=== PATIENT | female | born 1985 | race Caucasian/White ===

== ENCOUNTER 2019-01-10 11:57 | Emergency (ER) | payer OTHER, SELFPAY ==
--- OUTSIDE RECORDS SUMMARY | 2019-01-10 11:58 | XMS REPORT ---
:1985 [facility] Address [address] [place] [address] Care Team Providers Name Role Phone Unavailable Unavailable Unavailable Problems This patient has no known problems. Allergies, Adverse Reactions, Alerts This patient has no known allergies or adverse reactions. Medications This patient has no known medications.
--- NOTE | 2019-01-10 13:14 | EDPHYS ---
Physician Documentation [facility] Name: Emerald Neri Age: 33 yrs Sex: Female : 1985 Arrival Date: 01/10/2019 Time: 12:02 Bed 10 Private MD: Alec Lowe E ED Physician Feliberto Hsu HPI: 01/10 13:11 This 33 yrs old Female presents to ER via Ambulatory with complaints of rn Cough, Sore Throat. 13:11 The patient or guardian reports cough, flu symptoms. Onset: The symptoms/episode rn began/occurred 4 day(s) ago. Severity of symptoms: At their worst the symptoms were mild, in the emergency department the symptoms are unchanged. Modifying factors: The symptoms are alleviated by nothing, the symptoms are aggravated by smoke. The patient has experienced similar episodes in the past. The patient has not recently seen a physician. 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 - Social history:: Smoking status: Patient uses tobacco products, smokes one-half pack cigarettes per day. - Ebola Screening: : No symptoms or risks identified at this time. - Family history:: not pertinent. - Hospitalizations: : No recent hospitalization is reported. ROS: 13:11 Constitutional: Negative for fever, chills, and weight loss, Eyes: Negative for injury, rn pain, redness, and discharge, Neck: Negative for injury, pain, and swelling, Cardiovascular: Negative for chest pain, palpitations, and edema, Respiratory: Negative for wheezing, and pleuritic chest pain Abdomen/GI: Negative for abdominal pain, nausea, vomiting, diarrhea, and constipation, MS/Extremity: Negative for injury and deformity, Skin: Negative for injury, rash, and discoloration, Neuro: Negative for headache, numbness, tingling, and seizure. Exam: 13:11 Constitutional: This is a well developed, well nourished patient who is awake, alert, rn and in no acute distress. Head/Face: Normocephalic, atraumatic. Eyes: Pupils equal round and reactive to light, extra-ocular motions intact. Lids and lashes normal. Conjunctiva and sclera are non-icteric and not injected. Cornea within normal limits. Periorbital areas with no swelling, redness, or edema. ENT: mild pharyngeal erythema, no stridor Neck: Trachea midline, no thyromegaly or masses palpated, and no cervical lymphadenopathy. Supple, full range of motion without nuchal rigidity, or vertebral point tenderness. No Meningismus. Cardiovascular: Regular rate and rhythm. No pulse deficits. Respiratory: Lungs have equal breath sounds bilaterally, clear to auscultation and percussion. No rales, rhonchi or wheezes noted. No increased work of breathing, no retractions or nasal flaring. Skin: Warm, dry with normal turgor. Normal color with no rashes, no lesions, and no evidence of cellulitis. MS/ Extremity: Pulses equal, no cyanosis. Neurovascular intact. Full, normal range of motion. Equal circumference. Neuro: Awake and alert, GCS 15, oriented to person, place, time, and situation. Cranial nerves II-XII grossly intact. Motor strength 5/5 in all extremities. Sensory grossly intact. Vital Signs: 12:10 BP 148 / 100; Pulse 98; Resp 18; Temp 97.8; Pulse Ox 100% on R/A; Pain 7/10; hb MDM: 13:02 Patient medically screened. rn 13:11 Differential Diagnosis: Bronchitis Influenza Upper Respiratory Infection Viral Syndrome rn Pneumonia. Data reviewed: vital signs, nurses notes, lab test result(s). Counseling: I had a detailed discussion with the patient and/or guardian regarding: the historical points, exam findings, and any diagnostic results supporting the discharge/admit diagnosis, lab results, the need for outpatient follow up, to return to the emergency department if symptoms worsen or persist or if there are any questions or concerns that arise at home, smoking cessation. Refusal of service: The patient/guardian displays adequate decision making capability and despite a detailed discussion of alternatives, benefits, risks, and consequences refuses: all X-rays. ED course: Pt refuses xrays, just wanted to see if she had the flu, wants to go home, states doesn't want to wait an hour for an xray. . 02/12 12:12 Order name: Strep; Complete Time: 13:02 01/10 12:12 Order name: Flu; Complete Time: 13:02 01/10 12:44 Order name: Throat Culture EDMS Administered Medications: No medications were administered Disposition: 01/10/19 13:13 Discharged to Home. Impression: Cough. - Condition is Stable. - Discharge Instructions: Cough, Adult. - Medication Reconciliation Form, Thank You Letter, Antibiotic Education, Prescription Opioid Use form. - Follow up: Alec Lowe MD; When: As needed; Reason: Recheck today's complaints, Re-evaluation by your physician. - Problem is new. - Symptoms have improved. 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 Impression: Cough. Condition is Stable. iw Forms are Medication Reconciliation Form, Thank You Letter, Antibiotic Education, Prescription Opioid Use. Follow up: Alec Lowe; When: As needed; Reason: Recheck today's complaints, Re-evaluation by your physician. Problem is new. Symptoms have improved. rn
--- NOTE | 2019-01-10 13:14 | ER ---
Nurse's Notes [facility] Name: Emerald Neri Age: 33 yrs Sex: Female : 1985 Arrival Date: 01/10/2019 Time: 12:02 Bed 10 Private MD: Alec Lowe E Diagnosis: Cough Presentation: 01/10 12:08 Presenting complaint: Productive cough, mild SOB, sinus congestion, nausea, diarrhea, hb and runny nose x 3 days. Transition of care: patient was not received from another setting of care. Onset of symptoms was January 07, 2019. Risk Assessment: Do you want to hurt yourself or someone else? Patient reports no desire to harm self or others. Care prior to arrival: None. 12:08 Method Of Arrival: Ambulatory hb 12:08 Acuity: KYAW 4 hb 12:08 Initial Sepsis Screen: Does the patient meet any 2 criteria? No. Patient's initial iw sepsis screen is negative. Does the patient have a suspected source of infection? No. Patient's initial sepsis screen is negative. Triage Assessment: 13:15 General: Appears in no apparent distress. Behavior is calm, cooperative. 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 - Social history:: Smoking status: Patient uses tobacco products, smokes one-half pack cigarettes per day. - Ebola Screening: : No symptoms or risks identified at this time. - Family history:: not pertinent. - Hospitalizations: : No recent hospitalization is reported. Screenin:10 Abuse screen: Denies threats or abuse. Denies injuries from another. iw 12:40 Nutritional screening: No deficits noted. Tuberculosis screening: No symptoms or risk iw factors identified. Fall Risk None identified. Assessment: 12:40 General: Appears in no apparent distress. comfortable. Pain: Complains of pain in head. iw Neuro: Level of Consciousness is awake, alert, obeys commands, Moves all extremities. Cardiovascular: Capillary refill < 3 seconds Patient's skin is warm and dry. Respiratory: Airway is patent Respiratory effort is even, unlabored, Breath sounds are clear bilaterally. EENT: Throat is reddened bilaterally. Musculoskeletal: Range of motion: intact in all extremities. Vital Signs: 12:10 BP 148 / 100; Pulse 98; Resp 18; Temp 97.8; Pulse Ox 100% on R/A; Pain 7/10; hb ED Course: 12:02 Patient arrived in ED. mr 12:03 Alec Lowe MD is Private Physician. mr 12:10 Triage completed. hb 12:10 Arm band placed on right wrist. hb 12:40 Patient has correct armband on for positive identification. iw 13:01 Blanche Romo, ILENE is Primary Nurse. iw 13:02 Feliberto Hsu MD is Attending Physician. rn 13:13 Alec Lowe MD is Referral Physician. rn 13:15 No provider procedures requiring assistance completed. Patient did not have IV access iw during this emergency room visit. Administered Medications: No medications were administered Outcome: 13:13 Discharge ordered by MD. rn 13:14 Condition: good iw 13:15 Discharged to home ambulatory. iw 13:15 Instructed on discharge instructions, follow up and referral plans. 13:16 Patient left the ED. iw Signatures: Zenon Concepcion mr Blanche Romo, ILENE RN iw Feliberto Hsu MD MD rn Baxter, Heather, RN RN Corrections: (The following items were deleted from the chart) 12:14 12:08 Presenting complaint: Productive cough, sinus congestion, nausea, diarrhea, and hb runny nose x 3 days hb 14:33 12:00 Abuse screen: Denies threats or abuse. Denies injuries from another. iw iw
[2019-01-10 13:28] VITALS: BP 148/100; TEMP 97.8; O2SAT 100
== END 2019-01-10 13:16 | disposition home or self-care (01) ==
LOC: ER 11:57
DX: R05 Cough (principal); Z79.51 Long term (current) use of inhaled steroids; F41.9 Anxiety disorder, unspecified
CPT/HCPCS: 87070; 87081; 87804; 99281

== ENCOUNTER 2020-09-08 03:27 | Emergency (ER) | payer OTHER ==
--- OUTSIDE RECORDS SUMMARY | 2020-09-08 03:30 | XMS REPORT | Continuity of Care Document ---
:1985 Author Organization [facility] t Address [address] [place] [address] Dr. Leiva[address] [place] [id number] Care Team Providers Name Role Phone Unavailable Unavailable Unavailable Problems This patient has no known problems. Allergies, Adverse Reactions, Alerts This patient has no known allergies or adverse reactions. Medications This patient has no known medications. Procedures This patient has no known procedures. Results This patient has no known results.
--- NOTE | 2020-09-08 04:20 | EDPHYS ---
Physician Documentation [facility] Name: Emerald Neri Age: 35 yrs Sex: Female : 1985 Arrival Date: 09/08/2020 Time: 03:30 Bed 3 Private MD: ED Physician Ankush Griffith HPI: 09/08 03:51 This 35 yrs old Female presents to ER via Ambulatory with complaints of tw4 Laceration To Head. 03:51 The patient has a laceration related to: direct blow. The laceration(s) is(are) located tw4 on the right supraorbital ridge. Onset: The symptoms/episode began/occurred just prior to arrival, today. The patient has not experienced similar symptoms in the past. 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 - Social history:: Smoking status: Patient denies any tobacco usage or history of. ROS: 03:51 Constitutional: Negative for fever, chills, and weight loss, Eyes: Negative for injury, tw4 pain, redness, and discharge, Cardiovascular: Negative for chest pain, palpitations, and edema, Respiratory: Negative for shortness of breath, cough, wheezing, and pleuritic chest pain, Abdomen/GI: Negative for abdominal pain, nausea, vomiting, diarrhea, and constipation, Neuro: Negative for headache, weakness, numbness, tingling, and seizure. 03:51 Skin: Positive for laceration(s). Exam: 03:51 Constitutional: This is a well developed, well nourished patient who is awake, alert, tw4 and in no acute distress. Head/Face: Normocephalic, atraumatic. Chest/axilla: Normal chest wall appearance and motion. Nontender with no deformity. No lesions are appreciated. Cardiovascular: Regular rate and rhythm with a normal S1 and S2. No gallops, murmurs, or rubs. Normal PMI, no JVD. No pulse deficits. Respiratory: Lungs have equal breath sounds bilaterally, clear to auscultation and percussion. No rales, rhonchi or wheezes noted. No increased work of breathing, no retractions or nasal flaring. Abdomen/GI: Soft, non-tender, with normal bowel sounds. No distension or tympany. No guarding or rebound. No evidence of tenderness throughout. MS/ Extremity: Pulses equal, no cyanosis. Neurovascular intact. Full, normal range of motion. Neuro: Awake and alert, GCS 15, oriented to person, place, time, and situation. Cranial nerves II-XII grossly intact. Motor strength 5/5 in all extremities. Sensory grossly intact. Cerebellar exam normal. Normal gait. Vital Signs: 03:41 Resp 18; Temp 98.4; Pulse Ox 99% ; Weight 104.33 kg; Height 5 ft. 9 in. (175.26 cm); ea 03:51 BP 123 / 83; Pulse 80; ea 03:41 Body Mass Index 33.96 (104.33 kg, 175.26 cm) ea Laceration: 04:14 Wound Repair of 10.2cm ( 4in ) subcutaneous laceration to right supraorbital ridge. tw4 Distal neuro/vascular/tendon intact. Anesthesia: Wound infiltrated with 2 mls of 1% lidocaine. Wound prep: Simple cleansing by nurse. Skin closed with 5-0 Prolene using interrupted sutures and sterile technique. Dressed with Bacitracin. Patient tolerated well. MDM: 03:37 Patient medically screened. tw4 06:38 Differential diagnosis: superficial laceration, tendon injury. Data reviewed: vital tw4 signs, nurses notes. Data interpreted: Pulse oximetry: Interpretation: normal. Counseling: I had a detailed discussion with the patient and/or guardian regarding: the historical points, exam findings, and any diagnostic results supporting the discharge/admit diagnosis. 09/08 04:16 Order name: Suture Tray at Bedside; Complete Time: 04:17 ea 09/08 04:16 Order name: Sutures, Prolene; Complete Time: 04:17 ea 09/08 04:16 Order name: Wound Care; Complete Time: 04:17 ea Administered Medications: 04:10 Drug: Lidocaine (1 %) 1 application Volume: 20 ml; Route: Infiltration; ea 04:21 Follow up: Response: No adverse reaction ea Disposition: 09/08/20 04:20 Discharged to Home. Impression: Laceration without foreign body of right eyelid and periocular area. - Condition is Stable. - Discharge Instructions: Facial Laceration. - Medication Reconciliation Form, Thank You Letter, Antibiotic Education, Prescription Opioid Use form. - Follow up: Private Physician; When: Upon discharge from the Emergency Department; Reason: Recheck today's complaints, Continuance of care, Re-evaluation by your physician. - Problem is new. - Symptoms have improved. Signatures: Anastasia Jaimes RN RN ea Wadley, Terrence, MD MD tw4 Corrections: (The following items were deleted from the chart) 04:25 04:20 09/08/2020 04:20 Discharged to Home. Impression: Laceration without foreign body ea of right eyelid and periocular area. Condition is Stable. Forms are Medication Reconciliation Form, Thank You Letter, Antibiotic Education, Prescription Opioid Use. Follow up: Private Physician; When: Upon discharge from the Emergency Department; Reason: Recheck today's complaints, Continuance of care, Re-evaluation by your physician. Problem is new. Symptoms have improved. tw4
--- NOTE | 2020-09-08 04:20 | ER ---
Nurse's Notes [facility] Name: Emerald Neri Age: 35 yrs Sex: Female : 1985 Arrival Date: 09/08/2020 Time: 03:30 Bed 3 Private MD: Diagnosis: Laceration without foreign body of right eyelid and periocular area Presentation: 09/08 03:41 Chief complaint: Patient states: Reports she was having sex with her boyfriend in the ea dark and accidentally bumped her head against her boy friends head. Coronavirus screen: At this time, the client does not indicate any symptoms associated with coronavirus-19. Ebola Screen: No symptoms or risks identified at this time. Complicating Factors: There are no complicating factors for this patient. Initial Sepsis Screen: Does the patient meet any 2 criteria? No. Patient's initial sepsis screen is negative. Does the patient have a suspected source of infection? No. Patient's initial sepsis screen is negative. Risk Assessment: Do you want to hurt yourself or someone else? Patient reports no desire to harm self or others. Onset of symptoms was September 08, 2020. 03:41 Method Of Arrival: Ambulatory ea 03:41 Acuity: KYAW 3 ea Triage Assessment: 03:44 General: Appears in no apparent distress. Behavior is appropriate for age. Pain: Denies ea pain. Respiratory: Airway is patent Respiratory effort is even, unlabored, Respiratory pattern is regular, symmetrical. Derm: Skin is pink, warm \T\ dry. Injury Description: Laceration sustained to right supraorbital ridge is 0.5 to 2.5 cm long, was sustained less than 30 minutes ago. is bleeding a small amount. 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 - Social history:: Smoking status: Patient denies any tobacco usage or history of. Screenin:43 Abuse screen: Denies threats or abuse. Nutritional screening: No deficits noted. ea Tuberculosis screening: No symptoms or risk factors identified. Fall Risk None identified. Assessment: 03:41 General: Appears in no apparent distress. Behavior is calm, cooperative, appropriate ea for age. Pain: Complains of pain in right supraorbital ridge. Neuro: Level of Consciousness is awake, alert, obeys commands, Oriented to person, place, time. Respiratory: Airway is patent Respiratory effort is even, unlabored, Respiratory pattern is regular, symmetrical. Derm: Skin is pink, warm \T\ dry. Musculoskeletal: Circulation, motion, and sensation intact. Injury Description: Laceration sustained to right supraorbital ridge is clean, 0.5 to 2.5 cm long, was sustained less than 30 minutes ago. is bleeding a small amount. 04:24 Reassessment: Patient and/or family updated on plan of care and expected duration. Pain ea level reassessed. Patient is alert, oriented x 3, equal unlabored respirations, skin warm/dry/pink. Discharge instruction given to patient, verbalized the understanding of instruction. Pt left ED ambulatory accompanied by significant other. Vital Signs: 03:41 Resp 18; Temp 98.4; Pulse Ox 99% ; Weight 104.33 kg; Height 5 ft. 9 in. (175.26 cm); ea 03:51 BP 123 / 83; Pulse 80; ea 03:41 Body Mass Index 33.96 (104.33 kg, 175.26 cm) ea ED Course: 03:30 Patient arrived in ED. ag3 03:37 Ankush Griffith MD is Attending Physician. tw4 03:41 Anastasia Jaimes, RN is Primary Nurse. ea 03:43 Triage completed. ea 03:43 Patient has correct armband on for positive identification. Bed in low position. Call ea light in reach. Side rails up X2. Pulse ox on. NIBP on. 03:43 Arm band placed on right wrist. Patient placed in an exam room, on a stretcher, on ea pulse oximetry. 04:14 Assist provider with laceration repair on right supraorbital ridge that was 2.5 cm. or ea less using sutures. Set up tray. Performed by Ankush Griffith MD Dressed with Neosporin, Patient tolerated well. 04:25 Patient did not have IV access during this emergency room visit. ea Administered Medications: 04:10 Drug: Lidocaine (1 %) 1 application Volume: 20 ml; Route: Infiltration; ea 04:21 Follow up: Response: No adverse reaction ea Outcome: 04:20 Discharge ordered by . tw4 04:24 Discharged to home ambulatory, with family. ea 04:24 Condition: stable 04:24 Discharge instructions given to patient, Instructed on discharge instructions, follow up and referral plans. Demonstrated understanding of instructions, follow-up care. 04:25 Patient left the ED. ea Signatures: Anastasia Jaimes RN RN Ankush Arndt MD MD tw4 Sierra Hewitt3
[2020-09-08 04:59] VITALS: TEMP 98.4; O2SAT 99
[2020-09-08 05:04] VITALS: BP 123/83
== END 2020-09-08 04:25 | disposition home or self-care (01) ==
LOC: ER 03:27
PROC: 0JQ10ZZ Repair Face Subcutaneous Tissue and Fascia, Open Approach (ICD-10-PCS; principal; 2020-09-08)
DX: S01.111A Laceration without foreign body of right eyelid and periocular area, initial encounter (principal); W51.XXXA Accidental striking against or bumped into by another person, initial encounter; Y93.89 Activity, other specified; Y92.9 Unspecified place or not applicable; F41.9 Anxiety disorder, unspecified
CPT/HCPCS: 99283

== ENCOUNTER 2021-10-30 08:26 | Emergency (ER) | payer OTHER ==
--- OUTSIDE RECORDS SUMMARY | 2021-10-30 08:31 | XMS REPORT | Continuity of Care Document ---
:1985 Author Organization [facility] t Address [facility] [address] [place] [address] Care Team Providers Name Role Phone Sivakumar RODRIGUEZ Primary Care Physician Unavailable Farheen ALARCON Attending Clinician Unavailable Farheen ALARCON Attending Clinician Unavailable OMAYRA Attending Clinician Unavailable Sivakumar RODRIGUEZ Attending Clinician Unavailable Sivakumar Maddox Attending Clinician Rambo Stallworth DO Attending Clinician Doctor Unassigned, Name Attending Clinician Unavailable Francesca HORN Attending Clinician Unavailable Payers Payer Name Policy Type Policy Number Effective Date Expiration Date S rodney [employer] [id number] 2019 00:00:00 Problems Condition Condition Condition Status Onset Resolution Last Treating Co mments Source Name Details Category Date Date Treatment Clinician Date Other Other Disease Active Univers general general 1-14 [place] and advice and advice 00 Sc dical for Branch contracept contracept priscila priscila management management Obesity Obesity Disease Active Univers (BMI (BMI 1-14 ity of 30-39.9) 30-39.9) 00:00: [address] Branch Nexplanon Nexplanon Disease Active Uni vers insertion insertion 6-11 ity of 00:: [address] Branch Nexplanon Nexplanon Disease Active Uni vers removal removal 6-11 ity of 00:00: [address] BMI BMI Disease Active 2017-11 Univers 34.0-34.9, 34.0-34.9, 2-19 it y of adult adult 00:00: [place] 00 Medical Branch History of History of Disease Active 2017-11 U nivers abnormal abnormal 2-19 ity of cervical cervical 00:00: [place] Pap smear Pap smear 00 Medi cristian Branch History of History of Disease Active U nivers loop loop 5-22 [place] electrical electrical [place] excision excision 00 Medica l procedure procedure Bran ch (LEEP) (LEEP) Nexplanon Nexplanon Disease Active Uni vers in place in place 5-22 ity of 00:00: [place] 00 Medical Branch Tobacco Tobacco Disease Active Univers use use 9-25 ity of disorder disorder 00:00: [place] 00 Medical Branch Allergies, Adverse Reactions, Alerts Allergy Allergy Status Severity Reaction(s) Onset Inactive Treating Comm ents Source Name Type Date Date Clinician Codeine Propensi Active Nausea Univers ty to and/or 07-05 ity of adverse Vomiting 00:00: [place] reaction 00 Medical s Branch CODEINE DRUG Active N/V Univers INGREDI 07-05 ity of 00:00: [place] 00 Medical Branch Social History Social Habit Start Date Stop Date Quantity Comments Source History of tobacco Cigarette Smoker University of use [facility] Exposure to Not sure University of SARS-CoV-2 (event) [facility] Cigarettes smoked 2021-02-05 2021-02-05 Univers ity of current (pack per 00:00:00 00:00:00 [facility] ) - Reported Branch Cigarette 2021-02-05 2021-02-05 University of pack-years 00:00:00 00:00:00 [facility] Tobacco use and 2021-02-05 2021-02-05 Never used Universit y of exposure 00:00:00 00:00:00 [facility] Alcohol intake 2021-02-05 2021-02-05 Current drinker Unive rsity of 00:00:00 00:00:00 of alcohol [facility] (finding) Branch History SDOH 2020-12-12 2020-12-12 3 University o f Alcohol Frequency 00:00:00 00:00:00 [facility] Branch History SDOH 2020-12-12 2020-12-12 2 University o f Alcohol Std Drinks 00:00:00 00:00:00 [facility] Branch History SDOH 2020-12-12 2020-12-12 2 University o f Alcohol Binge 00:00:00 00:00:00 [facility] Alcohol Comment 2013-08-16 2013-08-16 occasional Universit y of 00:00:00 00:00:00 [facility] Sex Assigned At [birth year] Universit y of 00:00:00 00:00:00 [facility] Smoking Status Start Date Stop Date Source Current every day smoker 2021-02-05 00:00:[address] [facility] Medications Ordered Filled Start Stop Current Ordering Indication Dosage Frequency Signature Comments Components Source Medication Medication Date Date Medication? Clinician (SIG) Name Name norgestimat Yes [id number] 1{tbl} Take 1 Univers e-ethinyl 3-10 tablet by ity o f estradioL 00:00: mouth [place] (ORTHO 00 daily. [facility] 28,) 0.18/0.215/ 0.25 mg-35 mcg (28) tablet norgestimat Yes [id number] 1{tbl} Take 1 Univers e-ethinyl 3-10 tablet by ity o f estradioL 00:00: mouth [place] (ORTHO 00 daily. [facility] 28,) 0.18/0.215/ 0.25 mg-35 mcg (28) tablet norgestimat Yes [id number] 1{tbl} Take 1 Univers e-ethinyl 3-10 tablet by ity o f estradioL 00:00: mouth [place] (ORTHO 00 daily. [facility] 28,) 0.18/0.215/ 0.25 mg-35 mcg (28) tablet norgestimat Yes [id number] 1{tbl} Take 1 Univers e-ethinyl 3-10 tablet by ity o f estradioL 00:00: mouth [place] [facility]. [facility] 0.18/0.215/ 0.25 mg-35 mcg (28) tablet estradioL 2 2020- No [id number] 2mg Take 1 Univers mg tablet 12-25-18 tablet by ity of 00:00: 05:59 mouth [place] 00 :00 daily for Medical 21 days. Branch estradioL 2 2020- No [id number] 2mg Take 1 Univers mg tablet 12-25 tablet by ity of 00:00: 05:59 mouth [place] 00 :00 daily for Medical 21 days. Maria Eugenia estradioL 2 2020- No [id number] 2mg Take 1 Univers mg tablet 12-25 tablet by ity of 00:00: 05:59 mouth [place] 00 :00 daily for Medical 21 days. Maria Eugenia estradioL 2 2020- No [id number] 2mg Take 1 Univers mg tablet 12-25 tablet by ity of 00:00: 05:59 mouth [place] 00 :00 daily for Medical 21 days. Branch fluconazole 2020- No [id number] 150mg Take 1 Univers (DIFLUCAN) 12-24 tablet by ity of 150 mg 00:00: 05:59 [place] :[place] now for 1 Medical dose. Maria Eugenia fluconazole 2020- No [id number] 150mg Take 1 Univers (DIFLUCAN) 12-24 tablet by ity of 150 mg 00:00: 05:59 [place] :00 now for 1 Medical dose. Branch fluconazole 2020- No [id number] 150mg Take 1 Univers (DIFLUCAN) 12-24 tablet by ity of 150 mg 00:00: 05:59 [place] :[place] now for 1 Medical dose. Maria Eugenia fluconazole 2020- No [id number] 150mg Take 1 Univers (DIFLUCAN) 12-24 tablet by ity of 150 mg 00:00: 05:59 [place] :[place] now for 1 Medical dose. Branch fluconazole 2020- No [id number] 150mg Take 1 Univers (DIFLUCAN) 12-24 tablet by ity of 150 mg 00:00: 05:59 [place] :[place] now for 1 Medical dose. Branch fluconazole 2020- No [id number] 150mg Take 1 Univers (DIFLUCAN) 12-24 tablet by ity of 150 mg 00:00: 05:59 [place] :00 now for 1 Medical dose. Branch fluconazole 2020- No [id number] 150mg Take 1 Univers (DIFLUCAN) 12-24 tablet by ity of 150 mg 00:00: 05:59 [place] tablet [place] :00 now for 1 Medical dose. Branch busPIRone 0 Yes 10mg Take 10 mg Un wilian 10 mg 1-14 by mouth 2 ity of tablet 16:06: (two) [place] [address] times Medical daily. Branch montelukast 0 Yes 10mg Take 10 mg Univers 10 mg 1-14 by mouth ity of tablet 16:06: daily. [place] [address] Medical Branch FLUoxetine 0 Yes 40mg Take 40 mg U nivers 40 mg 1-14 by mouth ity of capsule 16:06: daily. [address] Branch pantoprazol 0 Yes 40mg Take 40 mg Univers e 40 mg EC 1-14 by mouth ity o f tablet 16:06: daily. [address] Branch eszopiclone 0 Yes 2mg Take 2 mg U nivers 2 mg tablet 1-14 by mouth ity of 16:06: at [place] [address] bedtime. Medical Branch clonazePAM 0 Yes 1mg Take 1 mg Un wilian 1 mg tablet 1-14 by mouth 3 it y of 16:06: (three) [place] [address] times Medical daily. Branch ALPRAZolam 0 Yes 2mg Take 2 mg Un wilian (XANAX) 1 1-14 by mouth 3 ity of mg tablet 16:06: (three) [place] [address] times Medical daily as Branch needed for Other (Anxiety). ranitidine 0 Yes 150mg Take 150 Un wilian (ZANTAC) 1-14 mg by ity of 150 mg 16:06: mouth 2 [place] tablet 49 (two) Medical times Branch daily. busPIRone 0 Yes 10mg Take 10 mg Un wilian 10 mg 1-14 by mouth 2 ity of tablet 16:06: (two) [place] [address] times Medical daily. Branch montelukast 0 Yes 10mg Take 10 mg Univers 10 mg 1-14 by mouth ity of tablet 16:06: daily. [address] FLUoxetine 2020-0 Yes 40mg Take 40 mg U nivers 40 mg 1-14 by mouth ity of capsule 16:06: daily. [address] Branch pantoprazol 2021-0 Yes 40mg Take 40 mg Univers e 40 mg EC 1-14 by mouth ity o f tablet 16:06: daily. [place] [address] Medical Branch eszopiclone 0 Yes 2mg Take 2 mg U nivers 2 mg tablet 1-14 by mouth ity of 16:06: at [place] [address] bedtime. Medical Branch clonazePAM 0 Yes 1mg Take 1 mg Un wilian 1 mg tablet 1-14 by mouth 3 it y of 16:06: (three) [place] [address] times Medical daily. Branch ALPRAZolam 0 Yes 2mg Take 2 mg Un wilian (XANAX) 1 1-14 by mouth 3 ity of mg tablet 16:06: (three) [place] [address] times Medical daily as Branch needed for Other (Anxiety). ranitidine 0 Yes 150mg Take 150 Un wilian (ZANTAC) 1-14 mg by ity of 150 mg 16:06: mouth 2 [place] tablet 49 (two) Medical times Branch daily. busPIRone 0 Yes 10mg Take 10 mg Un wilian 10 mg 1-14 by mouth 2 ity of tablet 16:06: (two) [place] [address] times Medical daily. Branch montelukast 0 Yes 10mg Take 10 mg Univers 10 mg 1-14 by mouth ity of tablet 16:06: daily. [address] Branch FLUoxetine 0 Yes 40mg Take 40 mg U nivers 40 mg 1-14 by mouth ity of capsule 16:06: daily. [address] Branch pantoprazol 0 Yes 40mg Take 40 mg Univers e 40 mg EC 1-14 by mouth ity o f tablet 16:06: daily. [place] [address] Medical Branch eszopiclone 0 Yes 2mg Take 2 mg U nivers 2 mg tablet 1-14 by mouth ity of 16:06: at [place] [address] bedtime. Medical Branch clonazePAM 2020-0 Yes 1mg Take 1 mg Un wilian 1 mg tablet 1-14 by mouth 3 it y of 16:06: (three) [place] [address] times Medical daily. Branch ALPRAZolam 0 Yes 2mg Take 2 mg Un wilian (XANAX) 1 1-14 by mouth 3 ity of mg tablet 16:06: (three) [place] [address] times Medical daily as Branch needed for Other (Anxiety). ranitidine 0 Yes 150mg Take 150 Un wilian (ZANTAC) 1-14 mg by ity of 150 mg 16:06: mouth 2 [place] tablet 49 (two) Medical times Branch daily. busPIRone 2020-0 Yes 10mg Take 10 mg Un wilian 10 mg 1-14 by mouth 2 ity of tablet 16:06: (two) [place] [address] times Medical daily. Branch montelukast 0 Yes 10mg Take 10 mg Univers 10 mg 1-14 by mouth ity of tablet 16:06: daily. [address] Branch FLUoxetine 0 Yes 40mg Take 40 mg U nivers 40 mg 1-14 by mouth ity of capsule 16:06: daily. [address] Branch pantoprazol 0 Yes 40mg Take 40 mg Univers e 40 mg EC 1-14 by mouth ity o f tablet 16:06: daily. [address] Branch eszopiclone 0 Yes 2mg Take 2 mg U nivers 2 mg tablet 1-14 by mouth ity of 16:06: at [place] [address] bedtime. Medical Branch clonazePAM 0 Yes 1mg Take 1 mg Un wilian 1 mg tablet 1-14 by mouth 3 it y of 16:06: (three) [place] [address] times Medical daily. Branch ALPRAZolam 0 Yes 2mg Take 2 mg Un wilian (XANAX) 1 1-14 by mouth 3 ity of mg tablet 16:06: (three) [place] [address] times Medical daily as Branch needed for Other (Anxiety). ranitidine 0 Yes 150mg Take 150 Un wilian (ZANTAC) 1-14 mg by ity of 150 mg 16:06: mouth 2 [place] tablet 49 (two) Medical times Branch daily. busPIRone 2020-0 Yes 10mg Take 10 mg Un wilian 10 mg 1-14 by mouth 2 ity of tablet 16:06: (two) [place] [address] times Medical daily. Branch montelukast 0 Yes 10mg Take 10 mg Univers 10 mg 1-14 by mouth ity of tablet 16:06: daily. [address] Branch FLUoxetine 2020-0 Yes 40mg Take 40 mg U nivers 40 mg 1-14 by mouth ity of capsule 16:06: daily. [address] Branch pantoprazol 0 Yes 40mg Take 40 mg Univers e 40 mg EC 1-14 by mouth ity o f tablet 16:06: daily. [place] [address] Medical Branch eszopiclone 0 Yes 2mg Take 2 mg U nivers 2 mg tablet 1-14 by mouth ity of 16:06: at [place] [address] bedtime. Medical Branch clonazePAM 0 Yes 1mg Take 1 mg Un wilian 1 mg tablet 1-14 by mouth 3 it y of 16:06: (three) [place] [address] times Medical daily. Branch ALPRAZolam 0 Yes 2mg Take 2 mg Un wilian (XANAX) 1 1-14 by mouth 3 ity of mg tablet 16:06: (three) [place] [address] times Medical daily as Branch needed for Other (Anxiety). ranitidine 0 Yes 150mg Take 150 Un wilian (ZANTAC) 1-14 mg by ity of 150 mg 16:06: mouth 2 [place] [address] (two) Medical times Branch daily. busPIRone 0 Yes 10mg Take 10 mg Un wilian 10 mg 1-14 by mouth 2 ity of tablet 16:06: (two) [place] [address] times Medical daily. Branch montelukast 0 Yes 10mg Take 10 mg Univers 10 mg 1-14 by mouth ity of tablet 16:06: daily. [address] Branch FLUoxetine 0 Yes 40mg Take 40 mg U nivers 40 mg 1-14 by mouth ity of capsule 16:06: daily. [address] pantoprazol 0 Yes 40mg Take 40 mg Univers e 40 mg EC 1-14 by mouth ity o f tablet 16:06: daily. [address] Branch eszopiclone 0 Yes 2mg Take 2 mg U nivers 2 mg tablet 1-14 by mouth ity of 16:06: at [place] [address] bedtime. Medical Branch clonazePAM 2020-0 Yes 1mg Take 1 mg Un wilian 1 mg tablet 1-14 by mouth 3 it y of 16:06: (three) [place] [address] times Medical daily. Branch ALPRAZolam 2020-0 Yes 2mg Take 2 mg Un wilian (XANAX) 1 1-14 by mouth 3 ity of mg tablet 16:06: (three) [place] [address] times Medical daily as Branch needed for Other (Anxiety). ranitidine 2020-0 Yes 150mg Take 150 Un wilian (ZANTAC) 1-14 mg by ity of 150 mg 16:06: mouth 2 [place] tablet 49 (two) Medical times Branch daily. busPIRone 2020-0 Yes 10mg Take 10 mg Un wilian 10 mg 1-14 by mouth 2 ity of tablet 16:06: (two) [place] [address] times Medical daily. Branch montelukast 2020-0 Yes 10mg Take 10 mg Univers 10 mg 1-14 by mouth ity of tablet 16:06: daily. [place] [address] Medical Branch FLUoxetine 2020-0 Yes 40mg Take 40 mg U nivers 40 mg 1-14 by mouth ity of capsule 16:06: daily. [place] [address] Medical Branch pantoprazol 2020-0 Yes 40mg Take 40 mg Univers e 40 mg EC 1-14 by mouth ity o f tablet 16:06: daily. [place] [address] Medical Branch eszopiclone 2020-0 Yes 2mg Take 2 mg U nivers 2 mg tablet 1-14 by mouth ity of 16:06: at [place] [address] bedtime. Medical Branch clonazePAM 2020-0 Yes 1mg Take 1 mg Un wilian 1 mg tablet 1-14 by mouth 3 it y of 16:06: (three) [place] [address] times Medical daily. Branch ALPRAZolam 0 Yes 2mg Take 2 mg Un wilian (XANAX) 1 1-14 by mouth 3 ity of mg tablet 16:06: (three) [place] [address] times Medical daily as Branch needed for Other (Anxiety). ranitidine 2020-0 Yes 150mg Take 150 Un wilian (ZANTAC) 1-14 mg by ity of 150 mg 16:06: mouth 2 [place] tablet 49 (two) Medical times Branch daily. busPIRone 2020-0 Yes 10mg Take 10 mg Un wilian 10 mg 1-14 by mouth 2 ity of tablet 16:06: (two) [place] [address] times Medical daily. Branch montelukast 2020-0 Yes 10mg Take 10 mg Univers 10 mg 1-14 by mouth ity of tablet 16:06: daily. [place] [address] Medical Branch FLUoxetine 2020-0 Yes 40mg Take 40 mg U nivers 40 mg 1-14 by mouth ity of capsule 16:06: daily. [address] Branch pantoprazol 0 Yes 40mg Take 40 mg Univers e 40 mg EC 1-14 by mouth ity o f tablet 16:06: daily. [address] Branch eszopiclone 0 Yes 2mg Take 2 mg U nivers 2 mg tablet 1-14 by mouth ity of 16:06: at [place] [address] bedtime. Medical Branch clonazePAM 0 Yes 1mg Take 1 mg Un wilian 1 mg tablet 1-14 by mouth 3 it y of 16:06: (three) [place] [address] times Medical daily. Branch ALPRAZolam 0 Yes 2mg Take 2 mg Un wilian (XANAX) 1 1-14 by mouth 3 ity of mg tablet 16:06: (three) [place] [address] times Medical daily as Branch needed for Other (Anxiety). ranitidine 0 Yes 150mg Take 150 Un wilian (ZANTAC) 1-14 mg by ity of 150 mg 16:06: mouth 2 [place] [facility] 49 (two) Medical times Branch daily. busPIRone 0 Yes 10mg Take 10 mg Un wilian 10 mg 1-14 by mouth 2 ity of tablet 16:06: (two) [place] [address] times Medical daily. Branch montelukast 0 Yes 10mg Take 10 mg Univers 10 mg 1-14 by mouth ity of tablet 16:06: daily. [address] FLUoxetine 0 Yes 40mg Take 40 mg U nivers 40 mg 1-14 by mouth ity of capsule 16:06: daily. [address] Branch pantoprazol 0 Yes 40mg Take 40 mg Univers e 40 mg EC 1-14 by mouth ity o f tablet 16:06: daily. [address] Branch eszopiclone 0 Yes 2mg Take 2 mg U nivers 2 mg tablet 1-14 by mouth ity of 16:06: at [place] [address] bedtime. Medical Branch clonazePAM 2020-0 Yes 1mg Take 1 mg Un wilian 1 mg tablet 1-14 by mouth 3 it y of 16:06: (three) [place] [address] times Medical daily. Branch ALPRAZolam 0 Yes 2mg Take 2 mg Un wilian (XANAX) 1 1-14 by mouth 3 ity of mg tablet 16:06: (three) [place] [address] times Medical daily as Branch needed for Other (Anxiety). ranitidine 0 Yes 150mg Take 150 Un wilian (ZANTAC) 1-14 mg by ity of 150 mg 16:06: mouth 2 [place] tablet 49 (two) Medical times Branch daily. busPIRone 2020-0 Yes 10mg Take 10 mg Un wilian 10 mg 1-14 by mouth 2 ity of tablet 16:06: (two) [place] [address] times Medical daily. Branch montelukast 0 Yes 10mg Take 10 mg Univers 10 mg 1-14 by mouth ity of tablet 16:06: daily. [place] [address] Medical Branch FLUoxetine 0 Yes 40mg Take 40 mg U nivers 40 mg 1-14 by mouth ity of capsule 16:06: daily. [place] [address] Medical Branch pantoprazol 0 Yes 40mg Take 40 mg Univers e 40 mg EC 1-14 by mouth ity o f tablet 16:06: daily. [place] [address] Medical Branch eszopiclone 0 Yes 2mg Take 2 mg U nivers 2 mg tablet 1-14 by mouth ity of 16:06: at [place] [address] bedtime. Medical Branch clonazePAM 0 Yes 1mg Take 1 mg Un wilian 1 mg tablet 1-14 by mouth 3 it y of 16:06: (three) [place] [address] times Medical daily. Branch ALPRAZolam 0 Yes 2mg Take 2 mg Un wilian (XANAX) 1 1-14 by mouth 3 ity of mg tablet 16:06: (three) [place] [address] times Medical daily as Branch needed for Other (Anxiety). ranitidine 2020-0 Yes 150mg Take 150 Un wilian (ZANTAC) 1-14 mg by ity of 150 mg 16:06: mouth 2 [place] tablet 49 (two) Medical times Branch daily. busPIRone 2020-0 Yes 10mg Take 10 mg Un wilian 10 mg 1-14 by mouth 2 ity of tablet 16:06: (two) [place] [address] times Medical daily. Branch montelukast 0 Yes 10mg Take 10 mg Univers 10 mg 1-14 by mouth ity of tablet 16:06: daily. [place] [address] Medical Branch FLUoxetine 2020-0 Yes 40mg Take 40 mg U nivers 40 mg 1-14 by mouth ity of capsule 16:06: daily. [address] Branch pantoprazol 0 Yes 40mg Take 40 mg Univers e 40 mg EC 1-14 by mouth ity o f tablet 16:06: daily. [address] Branch eszopiclone 0 Yes 2mg Take 2 mg U nivers 2 mg tablet 1-14 by mouth ity of 16:06: at [place] [address] bedtime. Medical Branch clonazePAM 0 Yes 1mg Take 1 mg Un wilian 1 mg tablet 1-14 by mouth 3 it y of 16:06: (three) [place] [address] times Medical daily. Branch ALPRAZolam 0 Yes 2mg Take 2 mg Un wilian (XANAX) 1 1-14 by mouth 3 ity of mg tablet 16:06: (three) [place] [address] times Medical daily as Branch needed for Other (Anxiety). ranitidine 0 Yes 150mg Take 150 Un wilian (ZANTAC) 1-14 mg by ity of 150 mg 16:06: mouth 2 [place] [facility] 49 (two) Medical times Branch daily. busPIRone 0 Yes 10mg Take 10 mg Un wilian 10 mg 1-14 by mouth 2 ity of tablet 16:06: (two) [place] [address] times Medical daily. Branch montelukast 0 Yes 10mg Take 10 mg Univers 10 mg 1-14 by mouth ity of tablet 16:06: daily. [address] Branch FLUoxetine 0 Yes 40mg Take 40 mg U nivers 40 mg 1-14 by mouth ity of capsule 16:06: daily. [address] Branch pantoprazol 0 Yes 40mg Take 40 mg Univers e 40 mg EC 1-14 by mouth ity o f tablet 16:06: daily. [address] Branch eszopiclone 0 Yes 2mg Take 2 mg U nivers 2 mg tablet 1-14 by mouth ity of 16:06: at [place] [address] bedtime. Medical Branch clonazePAM 2020-0 Yes 1mg Take 1 mg Un wilian 1 mg tablet 1-14 by mouth 3 it y of 16:06: (three) [place] [address] times Medical daily. Branch ALPRAZolam 2020-0 Yes 2mg Take 2 mg Un wilian (XANAX) 1 1-14 by mouth 3 ity of mg tablet 16:06: (three) [place] [address] times Medical daily as Branch needed for Other (Anxiety). ranitidine 2020-0 Yes 150mg Take 150 Un [place]ian (ZANTAC) 1-14 mg by ity of 150 mg 16:06: mouth 2 [place] tablet 49 (two) Medical times Branch daily. busPIRone 2020-0 Yes 10mg Take 10 mg Un wilian 10 mg 1-14 by mouth 2 ity of tablet 16:06: (two) [place] [address] times Medical daily. Branch montelukast 0 Yes 10mg Take 10 mg Univers 10 mg 1-14 by mouth ity of tablet 16:06: daily. [place] [address] Medical Branch FLUoxetine 0 Yes 40mg Take 40 mg U nivers 40 mg 1-14 by mouth ity of capsule 16:06: daily. [address] Branch pantoprazol 0 Yes 40mg Take 40 mg Univers e 40 mg EC 1-14 by mouth ity o f tablet 16:06: daily. [address] Branch eszopiclone 0 Yes 2mg Take 2 mg U nivers 2 mg tablet 1-14 by mouth ity of 16:06: at [place] [address] bedtime. Medical Branch clonazePAM 0 Yes 1mg Take 1 mg Un [place]ian 1 mg tablet 1-14 by mouth 3 it y of 16:06: (three) [place] [address] times Medical daily. Branch ALPRAZolam 0 Yes 2mg Take 2 mg Un [place] (XANAX) 1 1-14 by mouth 3 ity of mg tablet 16:06: (three) [place] [address] times Medical daily as Branch needed for Other (Anxiety). ranitidine 2020-0 Yes 150mg Take 150 Un [place] (ZANTAC) 1-14 mg by ity of 150 mg 16:06: mouth 2 [place] tablet 49 (two) Medical times Branch daily. busPIRone 2020-0 Yes 10mg Take 10 mg Un wilian 10 mg 1-14 by mouth 2 ity of tablet 16:06: (two) [place] [address] times Medical daily. Branch montelukast 0 Yes 10mg Take 10 mg Univers 10 mg 1-14 by mouth ity of tablet 16:06: daily. [place] [address] Medical Branch FLUoxetine 2020-0 Yes 40mg Take 40 mg U nivers 40 mg 1-14 by mouth ity of capsule 16:06: daily. [address] pantoprazol Yes 40mg Take 40 mg Univers e 40 mg EC 1-14 by mouth ity o f tablet 16:06: daily. [address] eszopiclone Yes 2mg Take 2 mg U nivers 2 mg tablet 1-14 by mouth ity of 16:06: at [place] [address] bedtime. Medical Branch clonazePAM Yes 1mg Take 1 mg Un wilian 1 mg tablet 1-14 by mouth 3 it y of 16:06: (three) [place] [address] times Medical daily. Branch ALPRAZolam Yes 2mg Take 2 mg Un wilian (XANAX) 1 1-14 by mouth 3 ity of mg tablet 16:06: (three) [place] [address] times Medical daily as Branch needed for Other (Anxiety). ranitidine Yes 150mg Take 150 Un wilian (ZANTAC) 1-14 mg by ity of 150 mg 16:06: mouth 2 [place] tablet 49 (two) Medical times Branch daily. SERTraline 2017-11 Yes 50mg Take 50 mg U nivers (ZOLOFT) 50 2-19 by mouth ity of mg tablet 15:46: daily. [address] SERTraline 2017-11 Yes 50mg Take 50 mg U nivers (ZOLOFT) 50 2-19 by mouth ity of mg tablet 15:46: daily. [address] SERTraline 2017-11 Yes 50mg Take 50 mg U nivers (ZOLOFT) 50 2-19 by mouth ity of mg tablet 15:46: daily. [address] SERTraline 2017-11 Yes 50mg Take 50 mg U nivers (ZOLOFT) 50 2-19 by mouth ity of mg tablet 15:46: daily. [address] SERTraline 2017-11 Yes 50mg Take 50 mg U nivers (ZOLOFT) 50 2-19 by mouth ity of mg tablet 15:46: daily. [address] SERTraline 2017-11 Yes 50mg Take 50 mg U nivers (ZOLOFT) 50 2-19 by mouth ity of mg tablet 15:46: daily. [address] SERTraline 2017-11 Yes 50mg Take 50 mg U nivers (ZOLOFT) 50 2-19 by mouth ity of mg tablet 15:46: daily. [address] SERTraline 2017-11 Yes 50mg Take 50 mg U nivers (ZOLOFT) 50 2-19 by mouth ity of mg tablet 15:46: daily. [address] SERTraline 2017-11 Yes 50mg Take 50 mg U nivers (ZOLOFT) 50 2-19 by mouth ity of mg tablet 15:46: daily. [address] SERTraline 2017-11 Yes 50mg Take 50 mg U nivers (ZOLOFT) 50 2-19 by mouth ity of mg tablet 15:46: daily. [address] ALPRAZolam 2017-11 Yes 2mg Take 2 mg Un wilian (XANAX) 1 2-19 by mouth 3 ity of mg tablet 15:46: (three) [address] daily as Branch needed for Other (Anxiety). SERTraline 2017-11 Yes 50mg Take 50 mg U nivers (ZOLOFT) 50 2-19 by mouth ity of mg tablet 15:46: daily. [address] ranitidine 2017-11 Yes 150mg Take 150 Un wilian (ZANTAC) 2-19 mg by ity of 150 mg 15:46: mouth 2 [place] [address] (two) Medical times Branch daily. busPIRone 2017-11 Yes 10mg Take 10 mg Un wilian 10 mg 2-19 by mouth 2 ity of tablet 15:46: (two) [address] daily[address] Branch SERTraline 2017-11 Yes 50mg Take 50 mg U nivers (ZOLOFT) 50 2-19 by mouth ity of mg tablet 15:46: daily. [address] SERTraline 2017-11 Yes 50mg Take 50 mg U nivers (ZOLOFT) 50 2-19 by mouth ity of mg tablet 15:46: daily. [address] SERTraline 2017-11 Yes 50mg Take 50 mg U nivers (ZOLOFT) 50 2-19 by mouth ity of mg tablet 15:46: daily. [address] SERTraline 2017-11 Yes 50mg Take 50 mg U nivers (ZOLOFT) 50 2-19 by mouth ity of mg tablet 15:46: daily. [place] [facility] ibuprofen 2017-0 Yes 800mg Take 1 Unive rs 800 mg 5-06 tablet by ity of tablet 00:00: mouth [place] 00 every 6 Medical (six) Branch hours as needed for Pain (scale 1-3) or Pain (scale 4-6). ibuprofen 2017-0 Yes 800mg Take 1 Unive rs 800 mg 5-06 tablet by ity of tablet 00:00: mouth [place] 00 every 6 Medical (six) Branch hours as needed for Pain (scale 1-3) or Pain (scale 4-6). ibuprofen 2017-0 Yes 800mg Take 1 Unive rs 800 mg 5-06 tablet by ity of tablet 00:00: mouth [place] 00 every 6 Medical (six) Branch hours as needed for Pain (scale 1-3) or Pain (scale 4-6). ibuprofen 2017-0 Yes 800mg Take 1 Unive rs 800 mg 5-06 tablet by ity of tablet 00:00: mouth [place] 00 every 6 Medical (six) Branch hours as needed for Pain (scale 1-3) or Pain (scale 4-6). ibuprofen 2017-0 Yes 800mg Take 1 Unive rs 800 mg 5-06 tablet by ity of tablet 00:00: mouth [place] 00 every 6 Medical (six) Branch hours as needed for Pain (scale 1-3) or Pain (scale 4-6). ibuprofen 2017-0 Yes 800mg Take 1 Unive rs 800 mg 5-06 tablet by ity of tablet 00:00: mouth [place] 00 every 6 Medical (six) Branch hours as needed for Pain (scale 1-3) or Pain (scale 4-6). ibuprofen 2017-0 Yes 800mg Take 1 Unive rs 800 mg 5-06 tablet by ity of tablet 00:00: mouth [place] 00 every 6 Medical (six) Branch hours as needed for Pain (scale 1-3) or Pain (scale 4-6). ibuprofen 2017-0 Yes 800mg Take 1 Unive rs 800 mg 5-06 tablet by ity of tablet 00:00: mouth [place] 00 every 6 Medical (six) Branch hours as needed for Pain (scale 1-3) or Pain (scale 4-6). ibuprofen 2017-0 Yes 800mg Take 1 Unive rs 800 mg 5-06 tablet by ity of tablet 00:00: mouth [place] 00 every 6 Medical (six) Branch hours as needed for Pain (scale 1-3) or Pain (scale 4-6). ibuprofen 2017-0 Yes 800mg Take 1 Unive rs 800 mg 5-06 tablet by ity of tablet 00:00: mouth [place] 00 every 6 Medical (six) Branch hours as needed for Pain (scale 1-3) or Pain (scale 4-6). ibuprofen 2017-0 Yes 800mg Take 1 Unive rs 800 mg 5-06 tablet by ity of tablet 00:00: mouth [place] 00 every 6 Medical (six) Branch hours as needed for Pain (scale 1-3) or Pain (scale 4-6). ibuprofen 2017-0 Yes 800mg Take 1 Unive rs 800 mg 5-06 tablet by ity of tablet 00:00: mouth [place] 00 every 6 Medical (six) Branch hours as needed for Pain (scale 1-3) or Pain (scale 4-6). ibuprofen 2017-0 Yes 800mg Take 1 Unive rs 800 mg 5-06 tablet by ity of tablet 00:00: mouth [place] 00 every 6 Medical (six) Branch hours as needed for Pain (scale 1-3) or Pain (scale 4-6). ibuprofen 2017-0 Yes 800mg Take 1 Unive rs 800 mg 5-06 tablet by ity of tablet 00:00: mouth [place] 00 every 6 Medical (six) Branch hours as needed for Pain (scale 1-3) or Pain (scale 4-6). ibuprofen 2017-0 Yes 800mg Take 1 Unive rs 800 mg 5-06 tablet by ity of tablet 00:00: mouth [place] 00 every 6 Medical (six) Branch hours as needed for Pain (scale 1-3) or Pain (scale 4-6). Immunizations Ordered Filled Immunization Date Status Comments [facility] e Immunization Name Name [facility] 2011-08-24 Completed University of 00:00:00 [facility] 2011-08-24 Completed University of 00:00:00 [facility] 2011-08-24 Completed University of 00:00:00 [facility] 2011-08-24 Completed University of 00:00:00 [facility] TD 2011-08-24 Completed University of 00[facility]00:00 [facility] TD 2011-08-24 Completed University of 00:00:00 [facility] TD 2011-08-24 Completed University of 00:00:00 [facility] 2011-08-24 Completed University of 00:00:00 [place] [facility] TDAP 2011-08-24 Completed University of 00:00:00 [place] [facility] TDAP 2011-08-24 Completed University of 00:00:00 [place] [facility] TDAP 2011-08-24 Completed University of 00:00:00 [place] [facility] TDAP 2011-08-24 Completed University of 00:00:00 [place] [facility] TDAP 2011-08-24 Completed University of 00:00:00 [place] [facility] TDAP 2011-08-24 Completed University of 00:00:00 [place] [facility] TDAP 2011-08-24 Completed University of 00:00:00 [place] [facility] Rubella 2010-01-09 Completed University of 00:00:00 [place] [facility] Rubella 2010-01-09 Completed University of 00:00:00 [place] [facility] Rubella 2010-01-09 Completed University of 00:00:00 [place] [facility] Rubella 2010-01-09 Completed University of 00:00:00 [place] [facility] Rubella 2010-01-09 Completed University of 00:00:00 [place] [facility] Rubella 2010-01-09 Completed University of 00:00:00 [place] [facility] Rubella 2010-01-09 Completed University of 00:00:00 [place] [facility] Rubella 2010-01-09 Completed University of 00:00:00 [place] [facility] Rubella 2010-01-09 Completed University of 00:00:00 [place] [facility] Rubella 2010-01-09 Completed University of 00:00:00 [place] [facility] Rubella 2010-01-09 Completed University of 00:00:00 [place] [facility] Rubella 2010-01-09 Completed University of 00:00:00 [place] [facility] Rubella 2010-01-09 Completed University of 00:00:00 [place] [facility] Rubella 2010-01-09 Completed University of 00:00:00 [place] [facility] Rubella 2010-01-09 Completed University of 00:00:00 [facility] Vital Signs Vital Name Observation Time Observation Value Comments Source Systolic blood 2021-02-05 15:03:00 122 mm[Hg] Univer sity of pressure [facility] Branch Diastolic blood 2021-02-05 15:03:00 76 mm[Hg] Unive rsity of pressure [facility] Branch Heart rate 2021-02-05 15:03:00 92 /min Universi ty of [facility] Body temperature 2021-02-05 15:03:00 36.72 [facility] 2021-02-05 15:03:00 16 /min [facility] Body height 2021-02-05 15:03:00 172.7 cm Universi ty [facility] Body weight 2021-02-05 15:03:00 112.265 kg Universi [facility] BMI 2021-02-05 15:03:00 37.63 kg/m2 Universi ty [facility] Systolic blood 2020-12-12 15:47:00 126 mm[Hg] Univer sity of pressure [facility] Diastolic blood 2020-12-12 15:47:00 81 mm[Hg] Unive rsity [facility] Heart rate 2020-12-12 15:47:00 89 /min Universi [facility] Body temperature 2020-12-12 15:47:00 36.61 [facility] Res[facility] rate 2020-12-12 15:47:00 16 /min [facility] Body height 2020-12-12 15:47:00 172.7 cm Universi ty [facility] Body weight 2020-12-12 15:47:00 [facility] 2020-12-12 15:47:00 35.60 kg/m2 [facility] Procedures Procedure Date / Time Performed Performing Clinician Sourc e GC & CHLAMYDIA 2021-02-05 21:22:00 Myriam Rodriguez [facility] ASSIGNMENT OF BENEFITS 2020-12-12 15:32:26 Doctor Unassigned, No [facility] Encounters Start End Encounter Admission Attending Care Care Encounter Source Date/Time Date/Time Type Type Clinicians Facility Department ID 2021-11-04 2021-11-04 Outpatient R [facility] [id number] Univers 09:00:00 09:00[id number] 2021-11-04 2021-11-04 Outpatient R ALEKSANDR ALARCON [facility] [id number] Univers 09:00:00 09:00:00 [facility] 2021-10-31 2021-10-31 Outpatient R [facility] [id number] Univers 10:15:00 10:15:00 [id number] ity [facility] 2021-10-31 2021-10-31 Outpatient R [facility] [id number] Univers 10:15:00 10:15:[facility] 2021-10-30 2021-10-30 Outpatient R [facility] [id number] Univers 10:00:00 10:00:00 [id number] ity [facility] 2021-10-30 2021-10-30 Outpatient R LORENZAALET[facility]EE[facility] [id number] Univers 10:00:00 10:00:00 [facility] 2021-10-27 2021-10-27 Outpatient R [facility] [id number] Univers 08:45:00 08:45:00 [id number] [facility] 2021-10-27 2021-10-27 Outpatient R [facility] [id number] Univers 08:45:00 08:45:00 [facility] 2021-10-01 2021-10-01 Outpatient R OMAYRA, [facility] [id number] Univers 13:30:00 13:30:00 AMANDA [id number] [facility] 2021-10-01 2021-10-01 Outpatient R OMAYRA, [facility] [id number] Univers 13:30:00 13:30:00 AMANDA [facility] 2021-05-08 2021-05-08 Outpatient R AKINSIPE, [facility] [id number] Univers 10:30:00 10:30:00 MYRIAM [id number] ity o [facility] 2021-05-08 2021-05-08 Outpatient R AKINSIPE, [facility] [id number] Univers 10:30:00 10:30:00 MYRIAM ity o [facility] 2021-03-31 2021-03-31 Refill Adelso, [facility] [id number] Univers 00:00:00 00:00:00 Myriam C [employer]FFER [id number] ity of REGIONAL [id number] Loki as MATERNAL [id number] [facility] & CHILD [address] [place] [address] 2021-02-18 2021-02-18 [facility] [id number] Univers 00:00:00 00:00:00 [facility] [id number] i ty of [facility] 4.2.7.2.686 [place] [id number] [facility] [address] [place] [address] 2021-02-05 2021-02-[address] [facility] [id number] Univers 08:46:46 09:27:44 Visit Myriam Shaver [employer] [id number] ity of REGIONAL [id number] Loki as MATERNAL [id number] [address] 2021-02-05 2021-02-05 Outpatient R ADELSO [facility] [id number] Univers 09:00:00 09:00:00 MYRIAM [id number] ity o [facility] 2021-02-05 2021-02-05 [facility] [id number] Univers 09:00:00 09:00:00 MYRIAM ity o f [facility] 2021-01-12 2021-01-[address] [facility] [id number] Univers 00:00:00 00:00:00 Myriam C [employer]SP[employer] STUFFER [id number] ity of REGIONAL [id number] Loki as MATERNAL [id number] [address] 2020-12-24 2020-12-24 [facility] [id number] Univers 00:00:00 00:00:00 Myriam C [employer]SP[employer] STUFFER [id number] ity of REGIONAL [id number] Loki as MATERNAL [id number] [facility] & CHILD [address] [place] [address] 2020-12-19 2020-12-19 Outpatient R ADELSO [facility] [id number] Univers 10:00:00 10:00:00 MYRIAM [id number] henokmagalie o [facility] 2020-12-19 2020-12-19 Outpatient R ADELSO [facility] [id number] Univers 10:00:00 10:00:00 MYRIAM goetz [facility] 2020-12-12 2020-12-12 Office [facility] [id number] Univers 09:33:58 10:37:54 Visit Myriam Shaver [employer] [id number] ity of [facility] [id number] Loki as MATERNAL [id number] Med ical & CHILD 107 [facility] 2020-12-12 2020-12-12 [facility] [id number] Univers 09:30:00 09:30:00 MYRIAM [id number] henokmagalie o [facility] 2020-12-12 2020-12-12 Outpatient R ADELSO [facility] [id number] Univers 09:30:00 09:30:00 MYRIAM meño [facility] 2020-12-12 2020-12-12 Orders Doctor YOAN [id number] Univers 00:00:00 00:00:00 Only Unassigned, TAE 350.1.13.[address] [facility] [id number] Loki as [id number] [address] 2020-06-19 2020-06-19 Outpatient Francesca HORN [facility] [id number] Univers 08:15:00 08:15:00 FLORENCE [id number] meño o [facility] 2020-06-19 2020-06-19 Outpatient Francesca HORN [facility] [id number] Univers 08:15:00 08:15:00 FLORENCE wilder o [facility] Results Test Description Test Time Test Comments Results Result Comments Source GC & CHLAMYDIA AMPLIFIED ASSAY 2021-02-06 18:12:08 Test Item Value Reference Range Interpretation Comme nts C. trachomatis Nucleic Acid (test Negative Negative code = 56533-7) N. gonorrhoeae Nucleic Acid (test Negative Negative code = 23668-3) CLAUDIO (test code = CLAUDIO) Reliable results are dependent on adequate specimen collection. ? A positive result obtained from a patient after therapeutic treatment cannot be interpreted as indicating the presence of viable organisms. ?For patients on whom a false positive result may have adverse psychosocial impact, retesting is advised. Indeterminate: Unable to generate a valid test result on this specimen. ?Please submit a new specimen for repeat testing if clinically indicated. Chlamydia trachomatis/Neisseria gonorrhoeae nucleic acid amplification testing (NAAT) has not been validated for medico-legal specimens (sexual abuse in francine-pubertal and pre-pubertal children, sexual assault, and legal cases). ?Culture for Chlamydia trachomatis and/or Neisseria gonorrhoeae from clinically appropriate sites is the method of choice in these cases. ? Results from this testing should be interpreted in conjunction with other laboratory and clinical data available to the clinician.For females in general, a urine specimen is a second-line option because it is considered less sensitive than a cervical swab for Chlamydia trachomatis and/or Neisseria gonorrhoeae NAAT. Lab Interpretation (test code = Normal 47823-5) [facility] CHLAMYDIA AMPLIFIED [id number] 18:12:08 Test Item Value Reference Range Interpretation Comments C. trachomatis Nucleic Negative Negative Acid (test code = 35957-1) N. gonorrhoeae Nucleic Negative Negative Acid (test code = 23437-1) CLAUDIO (test code = CLAUDIO) Reliable results are dependent on adequate specimen collection. ? A positive result obtained from a patient after therapeutic treatment cannot be interpreted as indicating the presence of viable organisms. ?For patients on whom a false positive result may have adverse psychosocial impact, retesting is advised. Indeterminate: Unable to generate a valid test result on this specimen. ?Please submit a new specimen for repeat testing if clinically indicated. Chlamydia trachomatis/Neisseria gonorrhoeae nucleic acid amplification testing (NAAT) has not been validated for medico-legal specimens (sexual abuse in francine-pubertal and pre-pubertal children, sexual assault, and legal cases). ?Culture for Chlamydia trachomatis and/or Neisseria gonorrhoeae from clinically appropriate sites is the method of choice in these cases. ? Results from this testing should be interpreted in conjunction with other laboratory and clinical data available to the clinician.For females in general, a urine specimen is a second-line option because it is considered less sensitive than a cervical swab for Chlamydia trachomatis and/or Neisseria gonorrhoeae NAAT. Lab Interpretation Normal (test code = 73557-0) [facility]
--- NOTE | 2021-10-30 09:29 | ER ---
Nurse's Notes [facility] Name: Emerald Neri Age: 36 yrs Sex: Female : 1985 Arrival Date: 10/30/2021 Time: 08:29 Bed 20 Private MD: Alec Lowe E Diagnosis: Dental Abscess Presentation: 10/30 08:40 Chief complaint: Patient states: Tooth abscess on bottom left side x 2 days, swelling jl7 noted. Coronavirus screen: At this time, the client does not indicate any symptoms associated with coronavirus-19. Ebola Screen: No symptoms or risks identified at this time. Initial Sepsis Screen: Does the patient meet any 2 criteria? No. Patient's initial sepsis screen is negative. Does the patient have a suspected source of infection? No. Patient's initial sepsis screen is negative. Risk Assessment: Do you want to hurt yourself or someone else? Patient reports no desire to harm self or others. Onset of symptoms was October 28, 2021. Care prior to arrival: None. 08:40 Method Of Arrival: Ambulatory 7 08:40 Acuity: KYAW 4 jl7 Triage Assessment: 08:41 General: Appears in no apparent distress. uncomfortable, Behavior is calm, cooperative, jl7 appropriate for age. Pain: Complains of pain in mouth Pain currently is 10 out of 10 on a pain scale. EENT: Reports pain. 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 - Social history:: Smoking status: Patient reports the use of cigarette tobacco products, smokes one-half pack cigarettes per day. Screenin:40 Abuse screen: Denies threats or abuse. Denies injuries from another. Nutritional sl2 screening: No deficits noted. Tuberculosis screening: No symptoms or risk factors identified. 08:40 Fall Risk None identified. sl2 Vital Signs: 08:40 BP 133 / 86; Pulse 91; Resp 17; Temp 98.3; Pulse Ox 98% ; Weight 117.93 kg; Height 5 jl7 ft. 8 in. (172.72 cm); Pain 10/10; 08:50 BP 138 / 94; Pulse 94; Resp 18; Temp 99.1; Pulse Ox 99% ; cs9 09:30 BP 133 / 91; Pulse 88; Resp 18; Temp 98.2; Pulse Ox 100% ; sl2 08:40 Body Mass Index 39.53 (117.93 kg, 172.72 cm) [facility] ED Course: 08:29 Patient arrived in ED. as 08:30 Alec Lowe MD is Private Physician. as 08:40 Patient has correct armband on for positive identification. Bed in low position. Call sl2 light in reach. 08:40 No provider procedures requiring assistance completed. Patient did not have IV access sl2 during this emergency room visit. 08:41 Triage completed. [facility] 08:41 Arm band placed on right wrist. [facility] 08:44 Jordan Ramirez PA is PHCP. [facility] 08:44 Misbah Burdick MD is Attending Physician. [facility] 09:18 Christine Tolentino, ILENE is Primary Nurse. 2 09:28 Regan Tolliver DDS is Referral Physician. [facility] Administered Medications: 09:45 Drug: Clindamycin 600 mg Route: IM; Site: right ventrogluteal; sl2 10:05 Follow up: Response: No adverse reaction sl2 Outcome: :28 Discharge ordered by MD. [facility] 10:05 Discharged to home ambulatory. sl2 10:05 Condition: stable 10:05 Discharge instructions given to patient, Instructed on discharge instructions, follow up and referral plans. medication usage, Demonstrated understanding of instructions, follow-up care, medications, Prescriptions given X 3. 10:14 Patient left the ED. sl2 Signatures: Jordan Ramirez PA PA jmm Martinez, Amelia as Leal, Jahala, RN RN jl7 Vanesa Miller [facility] Christine Tolentino, RN RN sl2 Corrections: (The following items were deleted from the chart) 08:42 08:41 Allergies: NKA; jl7 [facility]
--- NOTE | 2021-10-30 09:29 | EDPHYS ---
Physician Documentation [facility] Name: Emerald Neri Age: 36 yrs Sex: Female : 1985 Arrival Date: 10/30/2021 Time: 08:29 Bed 20 Private MD: Alec Lowe E ED Physician Misbah Burdick HPI: 10/30 09:10 This 36 yrs old Female presents to ER via Ambulatory with complaints of Abscess, jmm Toothache. 09:10 The patient presents with pain, redness, swelling. Modifying factors: The symptoms are jmm alleviated by nothing, the symptoms are aggravated by nothing. Associated signs and symptoms: Pertinent negatives: fever, pain, swelling. 09:24 36-year-old female with history of diabetes mellitus the presents emerged department jmm with complaints of left lower molar swelling. Patient states having a dental procedure performed in the area about 3 years ago. Patient has not yet to follow-up with the dentist. Denies vomiting or shortness of breath.. 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 - Social history:: Smoking status: Patient reports the use of cigarette tobacco products, smokes one-half pack cigarettes per day. ROS: 09:24 Constitutional: Negative for fever, chills, and weight loss, Cardiovascular: Negative jmm for chest pain, palpitations, and edema, Respiratory: Negative for shortness of breath, cough, wheezing, and pleuritic chest pain. 09:24 ENT: Positive for dental pain. 09:24 All other systems are negative. Exam: 09:24 Constitutional: This is a well developed, well nourished patient who is awake, alert, jmm and in no acute distress. 09:24 Eyes: EOMI, no conjunctival erythema appreciated ENT: Moist Mucus Membranes 09:24 Chest/axilla: Normal chest wall appearance and motion. Cardiovascular: Regular rate and rhythm. No edema appreciated Respiratory: Normal respirations, no respiratory distress appreciated Abdomen/GI: Non distended, soft Back: Normal ROM Skin: General appearance color normal MS/ Extremity: Moves all extremities, no obvious deformities appreciated, no edema noted to the lower extremities Neuro: Awake and alert, normal gait Psych: Behavior is normal, Mood is normal, Patient is cooperative and pleasant 09:24 Head/face: Left lower jaw swelling appreciated. 09:24 ENT: Posterior pharynx: is normal, Airway: normal, no evidence of obstruction. 09:24 ENT: Floor mouth is soft. 09:24 Neck: No submandibular tenderness appreciated. Vital Signs: 08:40 BP 133 / 86; Pulse 91; Resp 17; Temp 98.3; Pulse Ox 98% ; Weight 117.93 kg; Height 5 jl7 ft. 8 in. (172.72 cm); Pain 10/10; 08:50 BP 138 / 94; Pulse 94; Resp 18; Temp 99.1; Pulse Ox 99% ; cs9 09:30 BP 133 / 91; Pulse 88; Resp 18; Temp 98.2; Pulse Ox 100% ; sl2 08:40 Body Mass Index 39.53 (117.93 kg, 172.72 cm) jl7 MDM: 09:10 Patient medically screened. [facility] 09:26 Data reviewed: vital signs, nurses notes. Counseling: I had a detailed discussion with [facility] the patient and/or guardian regarding: the historical points, exam findings, and any diagnostic results supporting the discharge/admit diagnosis, the need for outpatient follow up, to return to the emergency department if symptoms worsen or persist or if there are any questions or concerns that arise at home. ED course: Patient will be treated with oral antibiotics for dental abscess. Physical exam findings do not appear consistent with Lynsey's, no pharyngeal edema appreciated, patient advised to follow-up with [facility] or dentist for further evaluation.. Administered Medications: 09:45 Drug: Clindamycin 600 mg Route: IM; Site: right ventrogluteal; sl2 10:05 Follow up: Response: No adverse reaction sl2 Disposition: 15:01 Co-signature as Attending Physician, Misbah Burdick MD I agree with the assessment and kdr plan of care. Disposition Summary: 10/30/21 09:28 Discharge Ordered Location: Home [facility] Condition: Stable [facility] Diagnosis - Dental Abscess [facility] Followup: [facility] - With: Regan Tolliver DDS - When: 1 - 2 days - Reason: Recheck today's complaints, Continuance of care, Re-evaluation by your physician Discharge Instructions: - Discharge Summary Sheet [facility] - Dental Abscess [facility] Forms: - Medication Reconciliation Form [facility] - Thank You Letter [facility] - Antibiotic Education [facility] - Prescription Opioid Use [facility] Prescriptions: - Clindamycin HCl 150 mg Oral Capsule - take 2 capsule by ORAL route every 6 hours for 10 days; 80 capsule; Refills: 0, [facility] Product Selection Permitted - acetaminophen 500 mg Oral tablet - take 2 tablet by ORAL route every 6 hours as needed not to exceed 8 tablets per [facility] 24hrs; 100 tablet; Refills: 0, Product Selection Permitted - Ibuprofen 800 mg Oral Tablet - take 1 tablet by ORAL route every 8 hours As needed take with food; 30 tablet; [facility] Refills: 0, Product Selection Permitted Signatures: Misbah Burdick MD MD kdr Mickail, Joel, PA PA jmm Leal, Jahala RN RN jl7 Christine Tolentino RN RN sl2 Corrections: (The following items were deleted from the chart) 08:42 08:41 Allergies: NKA; jl7 jl7
[2021-10-30] MEDS ORDERED: CLINDAMYCIN IV 150 MG/ML (4 mL) VIAL ONE (09:38)
[2021-10-30 10:28] VITALS: BP 133/91; TEMP 98.2; O2SAT 100
== END 2021-10-30 10:14 | disposition home or self-care (01) ==
LOC: ER 08:26
DX: K04.7 Periapical abscess without sinus (principal); F17.210 Nicotine dependence, cigarettes, uncomplicated; Z88.5 Allergy status to narcotic agent
CPT/HCPCS: 96372; 99283; S0077

== ENCOUNTER 2024-03-17 23:08 | Emergency (ER) | payer OTHER ==
--- OUTSIDE RECORDS SUMMARY | 2024-03-17 23:10 | XMS REPORT | Continuity of Care Document ---
Author Name Unknown Address [address] [facility] [address] [place] [address] [facility] Address [address] [facility] [address] [facility] [address] [place] [address] Care Team Providers Care Vest Tailor Name Role Phone Myriam Maddox Primary Care Physicia n MYRIAM DARDEN Attending Clinician Unavail able Stef Riley MD Attending Clinician [phone] KAYLAN PARMAR Attending Clinician Unavailable Kaylan Parmar MD Attending Clinician [phone] Doctor Unassigned, [place] Attending Clinician U navailable Myriam Maddox Attending Clinician + [facility] Attending Clinician Mónica Amato MD Attending Clinician + [phone] MÓNICA MINOR Attending Clinician UnavailMÓNICA Chan Attending Clinician Unavailcarlene velasquez Only, Bela Test Attending Clinician Unavailable AMANDA CUTLER Attending Clinician Unavailable Jamshid Stallworth DO Attending Clinician [phone] FLORENCE HORN Attending Clinician Unavailab KAYLAN Kay Admitting Clinician Unavailable Payers Payer Name Policy Type Policy Number Effective Date Expirati on Date Source Problems Condition Name Condition Details Condition Category Status Onset Date Resolution Date Last Treatment Date Treating Clinician Comments Source Nexplanon insertion Nexplanon insertion Disease Active 12-04 00:00: 00 [facility] Other general counseling and advice for contracept priscila management Other general counseling and advice for contracept priscila management Disease Active 12-12 00:00: 00 [facility] Obesity (BMI 30-39.9) Obesity (BMI 30-39.9) Disease Active 12-12 00:00: 00 [facility] BMI 34.0-34.9, adult BMI 34.0-34.9, adult Disease Active 2017-11 00:00: 00 [facility] History of abnormal cervical Pap smear History of abnormal cervical Pap smear Disease Active 2017-11 00:00: 00 [facility] History of loop electrical excision procedure (LEEP) History of loop electrical excision procedure (LEEP) Disease Active 04-19 00:00: 00 [facility] Nexplanon in place Nexplanon in place Disease Active 04-19 00:00: 00 [facility] Tobacco use disorder Tobacco use disorder Disease Active 08-23 00:00: 00 [facility] Allergies, Adverse Reactions, Alerts Allergy Name Allergy Type Status Severity Reaction(s) Onset Date Inactive Date Treating Clinician Comments Source Codeine Propensi ty to adverse reaction s Active Nausea and/or Vomiting 07-05 00:00: 00 [facility] CODEINE DRUG INGREDI Active N/V 07-05 00:00: 00 [facility] Social History Social Habit Start Date Stop Date Quantity Comments Source History of tobacco use Cigarette Smoker [facility] Exposure to SARS-CoV-2 (event) 2022-12-15 00:00:00 2022-12-25 22:35:[address] [facility] History of Social function 2021-11-26 00:00:00 2021-11-26 00:00:[address] [facility] Alcohol intake 2020-12-12 00:00:00 2020-12-12 00:00:00 Current drinker of alcohol (finding) [facility] History SDOH Alcohol Frequency 2020-12-12 00:00:00 2020-12-12 00:00:[address] [facility] History SDOH Alcohol Std Drinks 2020-12-12 00:00:00 2020-12-12 00:00:[address] [facility] History SDOH Alcohol Binge 2020-12-12 00:00:00 2020-12-12 00:00:[address] [facility] Cigarettes smoked current (pack per day) - Reported 2013-08-16 00:00:00 2013-08-16 00:00:[address] [facility] Cigarette pack-years 2013-08-16 00:00:00 2013-08-16 00:00:[address] [facility] Tobacco use and exposure 2013-08-16 00:00:00 2013-08-16 00:00:00 Smokeless tobacco non-user [facility] Alcohol Comment 2013-08-16 00:00:00 2013-08-16 00:00:[address] [facility] Sex Assigned At 1985 00:00:00 1985 00:00:[address] [facility] Smoking Status Start Date Stop Date Source Smokes tobacco daily 2013-08-16 00:00:[address] [facility] Medications Ordered Medication Name Filled Medication Name Start Date Stop Date Current Medication? Ordering Clinician Indication Dosage Frequency Signature (SIG) Comments Components Source levoFLOXaci n (LEVAQUIN) tablet 500 mg 12-26 08:15: 00 12-26 08:07 :00 No 500mg 500 mg, Oral, ONCE, 1 dose, On 12/26/22 at 0215, MADDI
Re ason for Anti-Infec tive: Documented Infection< br>Documen rogelio Infection Site: Urine
D uration of Therapy: Other (see Comments) [facility] ketorolac (TORADOL) injection 30 mg 12-26 07:00: 00 12-26 06:03 :00 No 30mg 30 mg, Slow IV Push, ONCE, 1 dose, On 12/26/22 at 0100, Routine [facility] levoFLOXaci n (LEVAQUIN) 500 mg tablet 12-26 00:00: 00 Yes [id number] 500mg Take 1 tablet by mouth every 24 (twenty-fo ur) hours. [facility] etonogestre L (NEXPLANON) implant 68 mg 12-04 20:45: 00 12-04 19:54 :00 No [id number] 68mg [facility] norgestimat e-ethinyl estradioL (ORTHO TRI-CYCLEN, 28,) 0.18/0.215/ 0.25 mg-35 mcg (28) tablet 10 00:00: 00 Yes [id number] 1{tbl} Take 1 tablet by mouth daily. [facility] ALPRAZolam (XANAX) 1 mg tablet 12-12 10:06: 49 Yes 2mg Take 2 mg by mouth 3 (three) times daily as needed for Other (Anxiety). [facility] ranitidine (ZANTAC) 150 mg tablet 12-12 10:06: 49 Yes 150mg Take 150 mg by mouth 2 (two) times daily. [facility] busPIRone 10 mg tablet 12-12 10:06: 49 Yes 10mg Take 10 mg by mouth 2 (two) times daily. [facility] montelukast 10 mg tablet 12-12 10:06: 49 Yes 10mg Take 10 mg by mouth daily. [facility] FLUoxetine 40 mg capsule 12-12 10:06: 49 Yes 40mg Take 40 mg by mouth daily. [facility] pantoprazol e 40 mg EC tablet 12-12 10:06: 49 Yes 40mg Take 40 mg by mouth daily. [facility] eszopiclone 2 mg tablet 12-12 10:06: 49 Yes 2mg Take 2 mg by mouth at bedtime. [facility] clonazePAM 1 mg tablet 12-12 10:06: 49 Yes 1mg Take 1 mg by mouth 3 (three) times daily. [facility] SERTraline (ZOLOFT) 50 mg tablet 2017-11 09:46: 22 Yes 50mg Take 50 mg by mouth daily. [facility] ibuprofen 800 mg tablet 04-03 00:00: 00 Yes 800mg Take 1 tablet by mouth every 6 (six) hours as needed for Pain (scale 1-3) or Pain (scale 4-6). [facility] Immunizations Ordered Immunization Name Filled Immunization Name Date Status Comments Source TDAP 2011-08-24 00:00:[address] [facility] TDAP 2011-08-24 00:00:[address] [facility] TDAP 2011-08-24 00:00:[address] [facility] TDAP 2011-08-24 00:00:[address] [facility] TDAP 2011-08-24 00:00:[address] [facility] Rubella 2010-01-09 00:00:[address] [facility] Rubella 2010-01-09 00:00:[address] [facility] Rubella 2010-01-09 00:00:[address] [facility] Rubella 2010-01-09 00:00:[address] [facility] Rubella 2010-01-09 00:00:[address] [facility] Rubella Unknown Completed [facility] TDAP Unknown Completed [facility] Rubella Unknown Completed [facility] TDAP Unknown Completed [facility] Vital Signs Vital Name Observation Time Observation Value Comments S ource Systolic blood pressure 2022-12-26 06:00:00 117 mm[Hg] [facility] Diastolic blood pressure 2022-12-26 06:00:00 62 mm[Hg] [facility] Heart rate 2022-12-26 06:00:00 96 /min [facility] Respiratory rate 2022-12-26 06:00:00 15 /min [facility] Oxygen saturation in Arterial blood by Pulse oximetry 2022-12-26 06:00:00 97 /min [facility] Body temperature 2022-12-26 04:33:[address] [facility] Body height 2022-12-26 04:33:00 175.3 cm [facility] Body weight 2022-12-26 04:33:00 104.327 kg [facility] BMI 2022-12-26 04:33:00 33.97 kg/m2 [facility] Systolic blood pressure 2021-12-04 19:20:00 129 mm[Hg] [facility] Diastolic blood pressure 2021-12-04 19:20:00 85 mm[Hg] [place] [facility] Heart rate 2021-12-04 19:20:00 95 /min [facility] Body temperature 2021-12-04 19:20:[address] [facility] Respiratory rate 2021-12-04 19:20:00 16 /min [facility] Body height 2021-12-04 19:20:00 172.7 cm [facility] Body weight 2021-12-04 19:20:00 118.559 kg [facility] BMI 2021-12-04 19:20:00 39.74 kg/m2 [facility] Procedures Procedure Date / Time Performed Performing Clinician Source CT HEAD WO CONTRAST 2022-12-26 07:08:[address] [facility] POCT TEST 2022-12-26 06:47:[address] [facility] MAGNESIUM 2022-12-26 06:45:00 Kaylan Parmar [facility] COMP. METABOLIC PANEL (36316) 2022-12-26 06:45:[address] [facility] CBC WITH DIFF 2022-12-26 06:45:00 Kaylan Parmar [facility] URINALYSIS 2022-12-26 06:45:00 Kaylan Parmar [facility] NOTICE OF PRIVACY PRACTICES 2022-12-26 04:26:50 Doctor Unassigned, [place] [facility] CONSENT/REFUSAL FOR DIAGNOSIS AND TREATMENT 2022-12-26 04:25:13 Doctor Unassigned, [place] [facility] POCT TEST 2021-12-04 19:25:[address] [facility] CONSENT FOR CONTRACEPTION 2021-12-04 06:01:00 Doctor Unassigned, [place] [facility] Encounters Start Date/Time End Date/Time Encounter Type Admission Type Attending Clinicians Care Facility Care Department Encounter ID Source 2023-12-24 21:33:29 Outpatient ZOEY GREER [id number] [facility] 2023-11-19 17:03:55 2023-11-19 17:03:[address] [facility] [id number] Rick Schwab 2023-11-16 14:19:20 2023-11-16 14:19:[address] [facility] [id number] Rick Schwab 2023-11-12 16:55:51 2023-11-12 16:55:[address] [facility] [id number] Rick Schwab 2023-08-30 16:51:40 2023-08-30 16:51:[address] [facility] [id number] Rick Schwab 2023-08-13 16:11:11 2023-08-13 16:11:[address] [facility] [id number] Rick Schwab 2023-03-23 10:01:41 2023-03-23 10:01:[address] [facility] [id number] Rick Schwab 2023-03-15 09:24:55 2023-03-15 09:24:[address] [facility] [id number] Rick Schwab 2022-12-28 00:00:00 2022-12-28 00:00:00 Telephone Stef Riley [facility] [id number] 350.1.13.10 4.2.7.2.686 [id number] [facility] 2022-12-25 22:39:00 2022-12-26 02:25:00 Emergency X KAYLAN PARMAR [facility] [id number] [facility] 2022-12-25 22:39:00 2022-12-26 02:25:00 Emergency Kaylan Parmar S [facility] [id number] 350.1.13.10 4.2.7.2.686 [id number] [facility] 2022-12-25 00:00:00 2022-12-25 00:00:00 Orders Only Doctor Unassigned, [place] [facility] [id number] 350.1.13.10 4.2.7.2.686 [id number] [facility] 2022-05-26 08:15:00 2022-05-26 08:15:00 Outpatient R MYRIAM DARDEN [facility] [id number] [facility] 2021-12-18 13:00:00 2021-12-18 13:00:00 Outpatient R MYRIAM DARDEN [facility] [id number] [facility] 2021-12-04 13:00:00 2021-12-04 13:52:25 Outpatient R MYRIAM DARDEN [facility] [id number] [facility] 2021-12-04 13:00:00 2021-12-04 13:52:25 Office Visit Myriam Darden [facility] [id number] 350.1.13.10 4.2.7.2.686 [id number] [facility] 2021-12-04 13:00:00 2021-12-04 13:00:00 Outpatient R MYRIAM DARDEN [facility] [id number] [facility] 2021-12-04 00:00:00 2021-12-04 00:00:00 Orders Only Doctor Unassigned, [place] [facility] 1.2840.114 350.1.13.10 4.2.7.2.686 [id number] [facility] 2021-11-26 08:15:00 2021-11-26 09:09:15 Outpatient R MYRIAM DARDEN [facility] [id number] [facility] 2021-11-26 08:15:00 2021-11-26 09:09:15 Office Visit Myriam Darden [facility] 1.114 350.1.13.10 4.2.7.2.686 [id number] [facility] 2021-11-04 08:48:34 2021-11-04 09:03:[address] [facility] Mónica Minor [facility] 1.114 350.1.13.10 4.2.7.2.686 [id number] [facility] 2021-11-04 09:00:00 2021-11-04 09:00:00 Outpatient R MÓNICA MINOR STRAHIL [facility] [id number] [facility] 2021-11-04 09:00:00 2021-11-04 09:00:00 Outpatient R MÓNICA MINOR STRAHIL [facility] [id number] [facility] 2021-11-04 00:00:00 2021-11-04 00:00:00 Orders Only Doctor Unassigned, [place] [facility] 1.114 350.1.13.10 4.2.7.2.686 [id number] [facility] 2021-10-31 10:35:30 2021-10-31 10:50:30 Laboratory Only Only, Adc Test Mónica Minor [facility] 1.114 350.1.13.10 4.2.7.2.686 [id number] [facility] 2021-10-31 10:15:00 2021-10-31 10:15:00 Outpatient R MÓNICA MINOR STRAHIL [facility] [id number] [facility] 2021-10-31 10:15:00 2021-10-31 10:15:00 Outpatient R LORENZAMIRLANDE MENDESRosibel BRITTALETHEAJEEVAN JOCELYNEMDRosibel [facility] [id number] [facility] 2021-10-30 10:00:00 2021-10-30 10:00:00 Outpatient R LORENZAALETHEAJEEVANMIRLANDERosibel JOSE FRANCISCOJEEVANJOCELYNEMDRosibel [facility] [id number] [facility] 2021-10-27 08:45:00 2021-10-27 08:45:00 Outpatient R [facility] [id number] [facility] 2021-10-01 13:30:00 2021-10-01 13:30:00 Outpatient R AMANDA CUTLER [facility] [id number] [facility] 2021-05-08 10:30:00 2021-05-08 10:30:00 Outpatient R MYRIAM DARDEN [facility] [id number] [facility] 2021-05-08 10:30:00 2021-05-08 10:30:00 Outpatient R MYRIAM DARDEN [facility] [id number] [facility] 2021-03-31 00:00:00 2021-03-31 00:00:00 Refill Myriam Darden [facility] ..840.114 350.1.13.10 4.2.7.2.686 [id number] [facility] 2021-02-18 00:00:00 2021-02-18 00:00:00 Patient Outreach Jamshid Stallworth [facility] ..840.114 350.1.13.10 4.2.7.2.686 [id number] [facility] 2021-02-05 08:46:46 2021-02-05 09:27:44 Office Visit Myriam Darden [facility] [id number] 350.1.13.10 4.2.7.2.686 [id number] [facility] 2021-02-05 09:00:00 2021-02-05 09:00:00 Outpatient R MYRIAM DARDEN [facility] [id number] [facility] 2021-01-12 00:00:00 2021-01-12 00:00:00 Refill Myriam Darden [facility] [id number] 350.1.13.10 4.2.7.2.686 [id number] [facility] 2020-12-25 00:00:00 2020-12-25 00:00:00 Patient Secure Msg Doctor Unassigned, [place] [facility] [id number] 350.1.13.10 4.2.7.2.686 [id number] [facility] 2020-12-25 00:00:00 2020-12-25 00:00:00 Patient Secure Msg Doctor Unassigned, [place] [facility] 1.2.840.114 350.1.13.10 4.2.7.2.686 [id number] [facility] 2020-12-24 00:00:00 2020-12-24 00:00:00 Telephone Myriam Darden [facility] 1.2.840.114 350.1.13.10 4.2.7.2.686 [id number] [facility] 2020-12-19 10:00:00 2020-12-19 10:00:00 Outpatient R MYRIAM DARDEN [facility] [id number] [facility] 2020-12-12 09:33:58 2020-12-12 10:37:54 Office Visit Myriam Darden [facility] 1..840.114 350.1.13.10 4.2.7.2.686 [id number] [facility] 2020-12-12 09:30:00 2020-12-12 09:30:00 Outpatient R MYRIAM DARDEN [facility] [id number] [facility] 2020-12-12 00:00:00 2020-12-12 00:00:00 Orders Only Doctor Unassigned, [place] [facility] 1..840.114 350.1.13.10 4.2.7.2.686 [id number] [facility] 2020-06-19 08:15:00 2020-06-19 08:15:00 Outpatient TYLER BYNUMEDVIN [facility] [id number] [facility] Results Test Description Test Time Test Comments Results Result Co mments Source CHLAMYDIA, NAAT, [id number] 20:19:24* Test Item Value Reference Range Interpretation Comme nts CHLAMYDIA, NAAT, URINE (test code = 14048) NEGATIVE NEGATIVE Assay methodolog y is nucleic acid amplification by transcriptionmediated amplification (TMA) utilizing the Aptima Combo 2 Assay. A negative result does not exclude low level infection, specimensampling error, or collection error. TRICHOMONAS, NAAT, [id number] 19:25:46* Test Item Value Reference Range Interpretation Comme nts TRICHOMONAS, NAAT, URINE (test code = 74249) POSITIVE NEGATIVE A Assay methodolog y is nucleic acid amplification by transcriptionmediated amplification (TMA) utilizing the Aptima TV Assay. [facility] has important pathology staff changes effective 01/27/2023. New pathology staff will provide uninterrupted, excellent patient care and clinical consultation. See URL: [email or web address] . UNLESS OTHERWISE INDICATED, ALL TESTING PERFORMED AT [facility] [address] [place] [address] SCIENCE AND OPERATIONS OFFICER: JAVI HOOVER M.D. [place] NUMBER [id number] [facility] [place] [id number] HERPES SIMPLEX AB, [id number] 13:20:35* Test Item Value Reference Range Interpretation [facility] HERPES SIMPLEX AB, IgM (test code = 60161) 1.89 INDEX SEE BELOW H IMPORTANT NOTE: HSV IgM ASSAYS ARE NOT TYPE-SPECIFIC. THE BIOLOGICALIgM RESPONSE WITH PRIMARY INFECTIONS IS VARIABLE AND MAY BEUNDETECTABLE; WITH RECURRENT INFECTIONS IgM MAY OR MAY NOT BEDETECTED. FALSE POSITIVE RESULTS UNRELATED TO HSV INFECTION CAN OCCURWITH HSV IgM ASSAYS. ALL RESULTS SHOULD BE REVIEWED IN CLINICALCONTEXT, AND COMPARISON TO ACUTE OR CONVALESCENT TYPE-SPECIFIC WVH2HIC HSV2 IgG ASSAYS SHOULD BE CONSIDERED. INTERPRETATION UNITS RANGE ----- ----- NEGATIVE INDEX <=0.89 EQUIVOCAL INDEX 0.90-1.09 POSITIVE INDEX >=1.10 HIV 1/2 4TH GEN, RFLX [id number] 06:44:49* Test Item Value Reference Range Interpretation [facility] HIV 1/2 4TH GEN, RFLX CONF ( test code = 3514) NON-REACTIVE NON-REACTIVE TSH, THIRD [id number] 06:07:25* Test Item Value Reference Range Interpretation [facility] TSH, THIRD GENERATION (test code = 2821) 1.140 UIU/ML 0.400-4.100 [id number] 05:32:36* Test Item Value Reference Range Interpretation [facility] RPR RESULT (test code = 3501) NON-REACTIVE NON-REACTIVE RPR TITER (test code = 3500) NOT INDIC. TITER NOT INDIC. CBC W/AUTO DIFF WITH [id number] 05:13:37* Test Item Value Reference Range Interpretation Comme [facility] WBC (test code = 1001) 5.7 K/UL 3.5-11.0 RBC (test code = 1002) 4.90 M/UL 3.80-5.40 HEMOGLOBIN (test code = 1003) 15.2 G/DL 11.5-15.5 HEMATOCRIT (test code = 1004) 44.9 % 34.0-45.0 MCV (test code = 1005) 91.6 fL 80.0-99.0 MCH (test code = 1006) 31.0 PG 25.0-33.0 MCHC (test code = 1007) 33.9 G/DL 31.0-36.0 RDW (test code = 1038) 14.7 % 11.5-15.0 NEUTROPHILS (test code = 1008) 44.3 % LYMPHOCYTES (test code = 1010) 47.5 % MONOCYTES (test code = 1011) 7.0 % EOSINOPHILS (test code = 1012) 0.5 % BASOPHILS (test code = 1013) 0.5 % IMMATURE GRANULOCYTES (test code = 1036) 0.2 % NUCLEATED RBCS (test code = 1065) 0.0 /100 WBC'S See_Comment [Automated Exposed Vocalsa ge] The system which generated this result transmitted reference range: 0.0. The reference range was not used to interpret this result as normal/abnormal. PLATELET COUNT (test code = 1015) 174 K/UL 130-400 ABSOLUTE NEUTROPHILS (test code = 1066) 2.54 K/UL 1.50-7.50 ABSOLUTE LYMPHOCYTES (test code = 1067) 2.72 K/UL 1.00-4.00 ABSOLUTE MONOCYTES (test code = 1068) 0.40 K/UL 0.20-1.00 ABSOLUTE EOSINOPHILS (test code = 1040) 0.03 K/UL 0.00-0.50 ABSOLUTE BASOPHILS (test code = 1069) 0.03 K/UL 0.00-0.20 ABS IMMATURE GRANULOCYTES (test code = 1020) 0.01 K/UL 0.00-0.10 ABS NUCLEATED RBCS (test code = 40327) 0.00 K/UL 0.00-0.11 COMPREHENSIVE METABOLIC [id number] 04:42:47* Test Item Value Reference Range Interpretation Comme nts GLUCOSE (test code = 2217) 92 MG/DL 70-99 BUN (test code = 2208) 11 MG/DL 6-20 CREATININE (test code = 2214) 0.87 MG/DL 0.60-1.30 eGFR (2020 CKD-EPI) (test code = 59276) 89 ML/MIN/1.73 >60 CALC BUN/CREAT (test code = 2235) 13 RATIO 6-28 SODIUM (test code = 223) 145 MEQ/L 133-146 POTASSIUM (test code = 2227) 4.3 MEQ/L 3.5-5.4 CHLORIDE (test code = 2215) 108 MEQ/L 95-107 H CARBON DIOXIDE (test code = 220) 22 MEQ/L 19-31 CALCIUM (test code = 2208) 9.0 MG/DL 8.5-10.5 PROTEIN, TOTAL (test code = 9) 7.3 G/DL 6.1-8.3 ALBUMIN (test code = 2200) 4.5 G/DL 3.5-5.2 CALC GLOBULIN (test code = 2240) 2.8 G/DL 1.9-3.7 CALC A/G RATIO (test code = 2233) 1.6 RATIO 1.0-2.6 BILIRUBIN, TOTAL (test code = 2206) 0.3 MG/DL See_Comment [Automated Klood] The system which generated this result transmitted reference range: <=1.2. The reference range was not used to interpret this result as normal/abnormal. ALKALINE PHOSPHATASE (test code = 2203) 74 U/L 40-114 AST (test code = 2217) 19 U/L 9-40 ALT (test code = 221) 30 U/L 5-40 URINALYSIS W/REFLEX [id number] 04:21:00* Test Item Value Reference Range Interpretation Comme nts COLOR (test code = 1501) YELLOW YELLOW-STRAW APPEARANCE (test code = 1502) CLOUDY CLEAR A SPECIFIC GRAVITY (test code = 1503) 1.023 1.005-1.035 LEUKOCYTE ESTERASE (test code = 1504) 1+ NEGATIVE A NITRITE (test code = 1505) NEGATIVE NEGATIVE pH (test code = 1506) 8.5 5.0-9.0 PROTEIN (test code = 1507) 1+ NEGATIVE A GLUCOSE (test code = 1508) NEGATIVE NEGATIVE KETONES (test code = 1509) NEGATIVE NEGATIVE UROBILINOGEN (test code = 1510) 1.0 MG/DL See_Comment [Automated Phagenesis] The system which generated this result transmitted reference range: <=2.0. The reference range was not used to interpret this result as normal/abnormal. BILIRUBIN (test code = 1511) NEGATIVE NEGATIVE OCCULT BLOOD (test code = 1512) NEGATIVE NEGATIVE WHITE BLOOD CELLS (test code = 1513) 0-5 /HPF 0-5 RED BLOOD CELLS (test code = 1514) 0-2 /HPF 0-2 PLEASE NOTE: NEW REFERENCE RANGE EFFECTIVE 23. EPITHELIAL CELLS (test code = 29496) 31-50 /HPF 0-10 A BACTERIA (test code = 1515) 3+ NONE SEEN A CASTS, HYALINE (test code = 1517) TRACE NONE-TRACE [id number] 07:37:31* Test Item Value Reference Range Interpretation Comme nts MAGNESIUM (test code = 4808864810) 2.1 mg/dL 1.7-2.4 Lab Interpretation (test cod e = 39923-2) Normal [facility]. METABOLIC PANEL (26117)2022-12-26 07:37:30* Test Item Value Reference Range Interpretation Comme nts NA (test code = 5722650004) 138 mmol/L 135-145 K (test code = 4468600364) 4.2 mmol/L 3.5-5.0 CL (test code = 2725663442) 105 mmol/L 98-108 CO2 TOTAL (test code = 6929092227) 24 mmol/L 23-31 AGAP (test code = 9884169025) 2-16 BUN (test code = 1306462205) 16 mg/dL 7-23 GLUCOSE (test code = 3216409231) 128 mg/dL 70-110 H CREATININE (test code = 6888169751) 0.88 mg/dL 0.50-1.04 TOTAL BILI (test code = 3559787703) 0.5 mg/dL 0.1-1.1 CALCIUM (test code = 3855980667) 8.6 mg/dL 8.6-10.6 T PROTEIN (test code = 2613225262) 7.7 g/dL 6.3-8.2 ALBUMIN (test code = 4202378645) 4.7 g/dL 3.5-5.0 ALK PHOS (test code = 3978368497) 57 U/L 34-122 ALTv (test code = 1742-6) 49 U/L 5-35 H AST(SGOT) (test code = 0648243450) 40 U/L 13-40 eGFR (test code = 7909184244) mL/min/1.73m2 CLAUDIO (test code = CLAUDIO) Association of Glomerular Filtration Rate (GFR) and Staging of Kidney Disease* + --+ --+ ------+| GFR (mL/min/1.73 m2) ?| With Kidney Damage ?| ?Without Kidney Damage+ --------+ --------+ +| ?>90 ?| ?Stage one ?| ? Normal ?+ ---+ ---+ -------+| ?60-89 ?| ?Stage two ?| ? Decreased GFR ? + --+ --+ ------+| ?30-59 ?| ?Stage three ?| ? Stage three ? + --+ --+ ------+| ?15-29 ?| ?Stage four ? | ? Stage four ?+ ---+ ---+ -------+| ?<15 (or dialysis) ? ?| ?Stage five ? | ? Stage five ?+ ---+ ---+ -------+ *Each stage assumes the associated GFR level has been in effect for at least three months. ?Stages 1 to 5, with or without kidney disease, indicate chronic kidney disease. Notes: Determination of stages one and two (with eGFR >59mL/min/1.73 m2) requires estimation of kidney damage for at least three months as defined by structural or functional abnormalities of the kidney, manifested by either:Pathological abnormalities or Markers of kidney damage (including abnormalities in the composition of the blood or urine or abnormalities in imaging tests). Lab Interpretation (test code = 13581-3) Abnormal [facility] WITH [id number] 07:03:46* Test Item Value Reference Range Interpretation Comme nts WBC (test code = 6690-2) See_Comment H [Automated Phagenesis] The system which generated this result transmitted reference range: 4.30 - 11.10 10*3/?L. The reference range was not used to interpret this result as normal/abnormal. RBC (test code = 789-8) See_Comment [Automated Phagenesis] The system which generated this result transmitted reference range: 3.93 - 5.25 10*6/?L. The reference range was not used to interpret this result as normal/abnormal. HGB (test code = 718-7) 15.1 g/dL 11.6-15.0 H HCT (test code = 4544-3) 45.9 % 35.7-45.2 H MCV (test code = 787-2) 92.5 fL 80.6-95.5 MCH (test code = 785-6) 30.4 pg 25.9-32.8 MCHC (test code = 786-4) 32.9 g/dL 31.6-35.1 RDW-SD (test code = 89835-3) 47.1 fL 39.0-49.9 RDW-CV (test code = 788-0) 13.9 % 12.0-15.5 PLT (test code = 777-3) See_Comment [Automated messa ge] The system which generated this result transmitted reference range: 166 - 358 10*3/?L. The reference range was not used to interpret this result as normal/abnormal. MPV (test code = 88545-0) 12.4 fL 9.5-12.9 NRBC/100 WBC (test code = 7017920443) See_Comment [Automated [employer] ssage] The system which generated this result transmitted reference range: 0.0 - 10.0 /100 WBCs. The reference range was not used to interpret this result as normal/abnormal. NRBC x10^3 (test code = 3514787019) See_Comment [Automated messa ge] The system which generated this result transmitted reference range: 10*3/?L. The reference range was not used to interpret this result as normal/abnormal. GRAN MAT (NEUT) % (test code = 770-8) 59.0 % IMM GRAN % (test code = 4177860505) 0.30 % LYMPH % (test code = 736-9) 33.4 % MONO % (test code = 5905-5) 6.2 % EOS % (test code = 713-8) 0.8 % BASO % (test code = 706-2) 0.3 % GRAN MAT x10^3(ANC) (test code = 6906614729) 6.99 10*3/uL 1.88-7.09 IMM GRAN x10^3 (test code = 8320906426) 0.04 10*3/uL 0.00-0.06 LYMPH x10^3 (test code = 731-0) 3.97 10*3/uL 1.32-3.29 H MONO x10^3 (test code = 742-7) 0.74 10*3/uL 0.33-0.92 EOS x10^3 (test code = 711-2) 0.10 10*3/uL 0.03-0.39 BASO x10^3 (test code = 704-7) 0.03 10*3/uL 0.01-0.07 Lab Interpretation (test code = 83581-3) [facility] [id number] 06:47:00* Test Item Value Reference Range Interpretation Comme nts POCT PREG (test code = 1605) Negative On board controls acceptable with C Line (test code = 3574) Present POCT PREG LOT # (test code = 3575) [id number] POCT PREG TEST DATE ( test code = 3576) 02-27-2024 Lab Interpretation (test cod e = 36392-3) Normal [facility] [id number] 19:25:00* Test Item Value Reference Range Interpretation Comme nts POCT PREG (test code = 1605) Negative On board controls acceptable with C Line (test code = 3574) Yes POCT PREG LOT # (test code = 3575) POCT PREG TEST DATE ( test code = 3576) [facility]"
[2024-03-17] MEDS ORDERED: LIDOCAINE 1% MPF 30 ML VIAL ONE (23:21)
[2024-03-17] MEDS ORDERED: TDAP (DIPHTH,PERTUSS(ACELL),TET VAC) 0.5 ML VIAL IMVAC ONE (23:22)
--- NOTE | 2024-03-18 00:08 | EDPHYS ---
Physician Documentation [facility] Name: Emerald Neri Age: 38 yrs Sex: Female : 1985 Arrival Date: 03/17/2024 Time: 23:08 Bed 16 Private MD: ED Physician Juma Rollins HPI: 03/17 23:17 This 38 yrs old Female presents to ER via Unassigned with complaints of Hand ec2 Injury. 23:17 Patient arrives today for injury to left hand. Patient grabbed a serrated blade, ec2 injured the second and third digits of the left hand. Patient reports unsure of tetanus shot. Denies other injury.. Historical: - Allergies: 23:22 Codeine; jb4 - PMHx: 23:22 Anxiety; jb4 - PSHx: 23:22 None; jb4 - Immunization history:: Adult Immunizations up to date, Last tetanus immunization: unknown. - Infectious Disease History:: Denies. - Social history:: Smoking status: Patient reports the use of cigarette tobacco products, smokes one-half pack cigarettes per day, Patient uses alcohol, patient/guardian reports recent binge of alcohol consumption. ROS: 23:17 Constitutional: as per hpi ec2 Exam: 23:17 Constitutional: GEN: NAD Head: atraumatic Eyes: EOMI Ears: External ears are ec2 normal. CV: regular rate LUNGS: no respiratory distress ABD: non-distended SKIN: 1 cm laceration to the distal second digit. 2 cm laceration to the distal second digit. MSK: no evidence of trauma NEURO: moves all extremities equally Vital Signs: 23:20 BP 140 / 93; Pulse 124; Resp 16; Pulse Ox 97% on R/A; Weight 112.49 kg (R); Height 5 jb4 ft. 8 in. (R); Pain /; 03/18 00:24 Pulse 101; Resp 16; Pulse Ox 100% on R/A; jb4 03/17 23:20 Body Mass Index 37.71 (112.49 kg, 172.72 cm) 4 03/17 23:20 Pain Scale: Adult jb4 Argyle Coma Score: 03/17 23:27 Eye Response: spontaneous(4). Motor Response: obeys commands(6). Verbal Response: km8 oriented(5). Total: 15. Procedures: 23:30 Nerve block: (digital) of palmar aspect of proximal phalanx of left middle finger and ec2 palmar aspect of proximal phalanx of left index finger Medication: Lidocaine 2% without epinephrine, Amount: 10 mls were injected, Effect: the patient's symptoms are improved, Set up for procedure. Performed by Juma Rollins MD Patient tolerated well. Laceration: 23:30 Wound Repair of 1cm ( 0.4in ) subcutaneous laceration to left hand. Distal ec2 neuro/vascular/tendon intact. Anesthesia: Digital block administered with 6 mls of 1% lidocaine. Wound prep: Moderate cleansing. Skin closed with 3 4-0 Prolene using simple sutures and sterile technique. Patient tolerated well. 23:32 Wound Repair of 2cm ( 0.8in ) subcutaneous laceration to left hand. Distal ec2 neuro/vascular/tendon intact. Anesthesia: Digital block administered with 4 mls of 1% lidocaine. Wound prep: Moderate cleansing. Skin closed with 5 4-0 Prolene using simple sutures and sterile technique. Patient tolerated well. MDM: 23:12 Patient medically screened. ec2 23:17 Data reviewed: vital signs. ED course: Patient arrives today for evaluation of injury ec2 to the left second and third digits. Examination well for skin findings as above. Will perform digital nerve blocks on both digits. Will obtain x-ray, update tetanus status. Doubt arterial injury, doubt bony injury.. 03/17 23:17 Order name: Hand Left 3 View XRAY ec2 03/17 23:17 Order name: Wound Care; Complete Time: 23:26 ec2 03/17 23:17 Order name: Suture Tray at Bedside; Complete Time: 23:18 ec2 Administered Medications: 23:26 Drug: Lidocaine Infiltration (1 %) 20 ml 20 ml Infiltration once; to bedside {Note: km8 given by Dr. Rollins.} Volume: 20 ml; Route: Infiltration; 23:26 Drug: Boostrix Tdap IM 0.5 ml IM once; as a single dose Route: IM; Site: right deltoid; km8 03/18 00:20 Drug: Ketorolac IM 30 mg IM once Route: IM; Site: left deltoid; jb4 Disposition Summary: 03/18/24 00:07 Discharge Ordered Condition: Stable ec2 Diagnosis - Hand Laceration ec2 Followup: ec2 - With: Private Physician - When: - Reason: Re-evaluation by your physician Discharge Instructions: - Discharge Summary Sheet ec2 - Laceration Care, Adult, [id number] ec2 Forms: - Work release form jb4 - Medication Reconciliation Form ec2 - Thank You Letter ec2 - Antibiotic Education ec2 - Prescription Opioid Use ec2 - Patient Portal Instructions ec2 - Leadership Thank You Letter ec2 Signatures: Dispatcher [employer] Tristian Raygoza, RN RN jb4 Juma Rollins MD MD ec2 Massiel Murphy RN RN km8 Corrections: (The following items were deleted from the chart) 00:07 04 23:32 Wound Repair of 2cm ( 0.8in ) subcutaneous laceration to left hand. Distal ec2 neuro/vascular/tendon intact. Anesthesia: Digital block administered with 4 mls of 1% lidocaine. Wound prep: Moderate cleansing. Skin closed with 4 4-0 Prolene using simple sutures and sterile technique. Patient tolerated well. ec2
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
[2024-03-18] MEDS ORDERED: KETOROLAC 30 MG/ML INJ ONE (00:15)
[2024-03-18 01:11] VITALS: BP 140/93; O2SAT 100
--- NOTE | 2024-03-18 22:08 | RAD REPORT ---
EXAM DESCRIPTION: RAD - Hand Left 3 View - 03/17/2024 11:53 pm CLINICAL HISTORY: Female, 38 years old, laceration to 2nd and 3rd digits TECHNIQUE: 3 views COMPARISON: None. FINDINGS: No acute fracture or dislocation. Normal osseous mineralization. Joint spaces and articula r surfaces are preserved. Soft tissue swelling and scattered gas of the index and middle digits. Soft tissue protrusion of the middle digit at the level of the middle phalanx. No radiopaque foreign body. IMPRESSION: Soft tissue injuries of the index and middle digits without acute osseous finding of the left hand. Electronically signed by: Leandro Nicholson MD 03/18/2024 12:24 AM CDT Due to temporary technical issues with the PACS/Fluency reporting system, reports are being signed by the in house radiologists without review as a courtesy to insure prompt reporting. The interpreting radiologist is fully responsible for the content of the report.
== END 2024-03-18 00:24 | disposition home or self-care (01) ==
LOC: ER 23:08
PROC: 0HQGXZZ Repair Left Hand Skin, External Approach (ICD-10-PCS; principal; 2024-03-18)
DX: S61.412A Laceration without foreign body of left hand, initial encounter (principal); Z88.5 Allergy status to narcotic agent
CPT/HCPCS: 73130; 64450; 96372; 99284; 12002; J2001

== ENCOUNTER 2024-07-28 08:29 | Emergency (ER) | payer OTHER ==
--- OUTSIDE RECORDS SUMMARY | 2024-07-28 08:32 | XMS REPORT | Clinical Summary ---
Author Name Unknown Organization [facility] Address [address] [place] [address] Care Team Providers Care Delivery Driver/Supervisor Name Role Phone Unavailable Primary Care Provider Unavailabl e Social History Tobacco Use Types Packs/Day Years Used Date Smoking Tobacco: Never Assessed Sex and Gender Information Value Date Recorded Sex Assigned at Not on file Gender Identity Not on file Sexual Orientation Not on file Plan of Treatment Health Maintenance Due Date Last Done Comments COVID-19 Vaccine (2022-2 4 season) 2023 Influenza Vaccine 07/30/2024 Pneumococcal Vaccine: Pediat rics (0 to 5 Years) and At-Risk Patients (6 to 64 Years) Aged Out No longer eligi ble based on patient's age to complete this topic
--- NOTE | 2024-07-28 09:35 | ER ---
Nurse's Notes [facility] Name: Emerald Neri Age: 39 yrs Sex: Female : 1985 Arrival Date: 07/28/2024 Time: 08:29 Bed 7 Private MD: Diagnosis: Viral infection, unspecified Presentation: 07/28 08:44 Chief complaint: Patient states: Congestion, headache, nausea x 2 days. Coronavirus jl7 screen: congestion, headache, Client presents with at least one sign or symptom that may indicate coronavirus-19. Ebola Screen: No symptoms or risks identified at this time. Initial Sepsis Screen: Does the patient meet any 2 criteria? HR > 90 bpm. No. Patient's initial sepsis screen is negative. Does the patient have a suspected source of infection? No. Patient's initial sepsis screen is negative. Risk Assessment: Do you want to hurt yourself or someone else? Patient reports no desire to harm self or others. Onset of symptoms was July 26, 2024. 08:44 Method Of Arrival: Ambulatory [facility] 08:44 Acuity: KYAW 4 jl7 Triage Assessment: 08:46 General: Appears in no apparent distress. uncomfortable, Behavior is calm, cooperative, jl7 appropriate for age. Pain: Complains of pain in headache Pain currently is 4 out of 10 on a pain scale. Neuro: Level of Consciousness is awake, alert, obeys commands, Oriented to person, place, time, situation. Cardiovascular: Patient's skin is warm and dry. Respiratory: Derm: Skin is pink, warm \T\ dry. 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 - Infectious Disease History:: Denies. - Social history:: Smoking status: Patient reports the use of cigarette tobacco products, smokes one-half pack cigarettes per day. Screenin:06 [facility] ED Fall Risk Assessment (Adult) History of falling in the last 3 months, mb9 including since admission No falls in past 3 months (0 pts) Confusion or Disorientation No (0 pts) Intoxicated or Sedated No (0 pts) Impaired Gait No (0 pts) Mobility Assist Device Used No (0 pt) Altered Elimination No (0 pt) Score/Fall Risk Level 0 - 2 = Low Risk Oriented to surroundings, Maintained a safe environment, Educated pt \T\ family on fall prevention, incl call for assistance when getting out of bed. Abuse screen: Denies threats or abuse. Nutritional screening: No deficits noted. Tuberculosis screening: No symptoms or risk factors identified. Assessment: 09:06 General: Appears in no apparent distress. Behavior is calm, cooperative. Pain: mb9 Complains of pain in head. Neuro: Joe Agitation-Sedation Scale (RASS): 0 - Alert and Calm Level of Consciousness is awake, alert, obeys commands, Oriented to person, place, time, situation, Appropriate for age Reports headache. Cardiovascular: Patient's skin is warm and dry. Respiratory: Reports cough that is Airway is patent Respiratory effort is even, unlabored, Respiratory pattern is regular, symmetrical. GI: Reports nausea. : No signs and/or symptoms were reported regarding the genitourinary system. EENT: Reports nasal congestion. Derm: Skin is pink, warm \T\ dry. Vital Signs: 08:44 BP 134 / 84; Pulse 108; Resp 17 S; Temp 98.8(O); Pulse Ox 98% on R/A; Weight 113.4 kg; jl7 Height 5 ft. 8 in. ; Pain 4/10; 09:41 BP 117 / 87; Pulse 95; Resp 18; Pulse Ox 100% on R/A; mb9 08:44 Body Mass Index 38.01 (113.40 kg, 172.72 cm) jl7 08:44 Pain Scale: Adult [facility] ED Course: 08:30 Patient arrived in ED. ec2 08:38 Juma Rollins MD is Attending Physician. ec2 08:40 Kira Karimi, ILENE is Primary Nurse. ld1 08:46 Triage completed. jl7 08:46 Arm band placed on right wrist. jl7 09:06 Concepcion Rooney, ILENE is Primary Nurse. mb9 09:06 Bed in low position. Call light in reach. Side rails up X 1. Provided Education on: mb9 press call light if needing anything. Client placed on continuous cardiac and pulse oximetry monitoring. NIBP monitoring applied. 09:41 No provider procedures requiring assistance completed. Patient did not have IV access mb9 during this emergency room visit. Administered Medications: No medications were administered Medication: :06 VIS not applicable for this client. mb9 Outcome: :35 Discharge ordered by . ec2 :41 Discharged to home ambulatory, mb9 :41 Condition: stable :41 Discharge instructions given to patient, Instructed on discharge instructions, follow up and referral plans. Demonstrated understanding of instructions, follow-up care, :41 Patient left the ED. mb9 Signatures: Archie Gutierrez RN RN jl7 Kira Karimi RN RN ld1 Nevin, Concepcion Parker RN RN mb9 Juma Rollins MD MD ec2
--- NOTE | 2024-07-28 09:35 | EDPHYS ---
Physician Documentation [facility] Name: Emerald Neri Age: 39 yrs Sex: Female : 1985 Arrival Date: 07/28/2024 Time: 08:29 Bed 7 Private MD: ED Physician Juma Rollins HPI: 07/28 09:36 This 39 yrs old Female presents to ER via Ambulatory with complaints of ec2 Congestion, Nausea. 09:36 Patient arrives today for 2 days of URI signs and symptoms. Patient been having cough ec2 and congestion along with nausea and decreased p.o. intake. Patient reports no known sick contacts. Patient reports no significant medical problems.. 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 - Infectious Disease History:: Denies. - Social history:: Smoking status: Patient reports the use of cigarette tobacco products, smokes one-half pack cigarettes per day. ROS: 09:36 Constitutional: as per hpi ec2 Exam: 09:36 Constitutional: GEN: NAD Head: atraumatic Eyes: EOMI Ears: External ears are ec2 normal. CV: regular rate LUNGS: no respiratory distress, no wheezes, no rales, no rhonchi ABD: non-distended SKIN: no evidence of rashes MSK: no evidence of trauma Vital Signs: 08:44 BP 134 / 84; Pulse 108; Resp 17 S; Temp 98.8(O); Pulse Ox 98% on R/A; Weight 113.4 kg; jl7 Height 5 ft. 8 in. ; Pain 4/10; 09:41 BP 117 / 87; Pulse 95; Resp 18; Pulse Ox 100% on R/A; mb9 08:44 Body Mass Index 38.01 (113.40 kg, 172.72 cm) jl7 08:44 Pain Scale: Adult jl7 MDM: 09:28 Patient medically screened. ec2 09:36 Data reviewed: vital signs. ED course: Patient arrives today for evaluation of URI ec2 signs and symptoms. Examination remarkable for well-appearing nontoxic individual is slightly tachycardic and otherwise in no acute distress with no focal lung sounds. Suspect viral infection. I offered COVID and influenza testing however this would not be management changing so we decided not to proceed. Additionally doubt pneumonia given lack of focal lung sounds and decided to forego chest x-ray. Will discharge home and have the patient follow-up outpatient expectantly. Return precautions given.. Administered Medications: No medications were administered Disposition Summary: 07/28/24 09:35 Discharge Ordered Notes: Location: Home ec2 Condition: Stable ec2 Diagnosis - Viral infection, unspecified ec2 Followup: ec2 - With: Private Physician - When: - Reason: Re-evaluation by your physician Discharge Instructions: - Discharge Summary Sheet ec2 - Viral Illness, Adult ec2 Forms: - Work release form ec2 - Medication Reconciliation Form ec2 - Antibiotic Education ec2 - Prescription Opioid Use ec2 - Patient Portal Instructions ec2 - Leadership Thank You Letter ec2 Prescriptions: - Zofran 4 mg Oral Tablet - take 1 tablet ORAL route every 12 hours As needed; 20 tablet; Refills: 0, ec2 Product Selection Permitted Signatures: Archie Gutierrez RN RN jl7 Juma Rollins MD MD ec2
[2024-07-28 09:51] VITALS: TEMP 98.8
[2024-07-28 09:52] VITALS: BP 117/87; O2SAT 100
== END 2024-07-28 09:41 | disposition home or self-care (01) ==
LOC: ER 08:29
DX: B34.9 Viral infection, unspecified (principal); F17.210 Nicotine dependence, cigarettes, uncomplicated
CPT/HCPCS: 99283